=== PATIENT | male | born 1940 | race Caucasian/White ===

== ENCOUNTER → 2016-11-26 | Outpatient (CLI) | payer MEDICARE ==
[~2016-11-26] MED LIST: ASPI81TA85 PO; BUME2TAB PO; CLAR10CA3 PO; CORE20CA PO; DIOV320T6 PO; FLOMAX PO; GLYB5TA PO; LAMI200T3 PO; LIPI20TA PO; METF500T PO; PLAV75TA PO; PRIL20TA2 PO; SERT-141 PO; TEGR1TAB PO; TRAN7.5T PO; [UNRECOGNIZED DRUG - CODE] PO
--- NOTE | 2016-11-26 17:34 | REP ---
CHEST X-RAY, TWO VIEWS: HISTORY: Dyspnea on exertion. COMPARISON: Chest x-ray 12/22/2014. FINDINGS: A unipolar pacemaker is seen in the right heart via the left side. There is moderate cardiomegaly. Cardiothoracic ratio today measures 19.5 cm over 32.9 cm. Heart size is essentially unchanged. The aorta is tortuous as before. Pleural angles are sharp. There is no evidence of pulmonary edema. Pulmonary vasculature is slightly cephalized. There are old healed rib fractures on the right. No other significant bony abnormality is seen. IMPRESSION: Moderate cardiomegaly. Pulmonary vasculature cephalization. No evidence of pulmonary edema or pleural effusion. Signed by Prasanth Zambrano MD 11/26/2016 06:57 P
[2016-11-26 20:31] LABS: MEAN CORPUSCULAR HEMOGLOBIN 27.7 pg (27.0-33.0); MEAN CORPUSCULAR HGB CONC 31.7 g/dl (32.0-36.5); MEAN CORPUSCULAR VOLUME 87.5 fl (80.0-96.0); RED CELL DISTRIBUTION WIDTH 13.7 % (11.5-14.5); WHITE BLOOD COUNT 5.3 K/mm3 (4.0-10.0)
[2016-11-26 20:52] LABS: CALCIUM LEVEL 8.4 MG/DL (8.8-10.2); CREATININE FOR GFR 1.63 MG/DL (0.70-1.30); GLOMERULAR FILTRATION RATE 44.1 (>42); POTASSIUM SERUM 4.4 MEQ/L (3.5-5.1)
== END ==
LOC: M SMT 14:13
PROVIDERS: ATTEND Internal Medicine Cardiovascular Disease
DX: R06.09 Other forms of dyspnea (principal); I51.7 Cardiomegaly

== ENCOUNTER → 2016-12-01 | Outpatient (CLI) | payer MEDICARE ==
[2016-12-01 10:43] LABS: CALCIUM LEVEL 8.4 MG/DL (8.8-10.2); CREATININE FOR GFR 1.53 MG/DL (0.70-1.30); GLOMERULAR FILTRATION RATE 47.5 (>42); PERCENT SATURATION 9.2 % (19.7-37.4); POTASSIUM SERUM 3.9 MEQ/L (3.5-5.1)
== END ==
LOC: M LAB 09:07
PROVIDERS: ATTEND Internal Medicine Cardiovascular Disease
DX: I42.9 Cardiomyopathy, unspecified (principal); I25.10 Atherosclerotic heart disease of native coronary artery without angina pectoris; D64.9 Anemia, unspecified

== ENCOUNTER → 2016-12-09 | Outpatient (CLI) | payer MEDICARE ==
[~2016-12-09] MED LIST changes: -PLAV75TA PO; +PLAV75TA38 PO
[2016-12-09 18:34] LABS: CALCIUM LEVEL 8.6 MG/DL (8.8-10.2); CREATININE FOR GFR 1.44 MG/DL (0.70-1.30); GLOMERULAR FILTRATION RATE 50.9 (>42); POTASSIUM SERUM 4.2 MEQ/L (3.5-5.1)
== END ==
LOC: M SMT 11:08
PROVIDERS: ATTEND Internal Medicine Cardiovascular Disease
DX: I50.9 Heart failure, unspecified (principal)

== ENCOUNTER → 2016-12-31 | Outpatient (CLI) | payer MEDICARE ==
[2016-12-31 14:33] LABS: CALCIUM LEVEL 8.7 MG/DL (8.8-10.2); CREATININE FOR GFR 1.59 MG/DL (0.70-1.30); GLOMERULAR FILTRATION RATE 45.4 (>42); POTASSIUM SERUM 4.1 MEQ/L (3.5-5.1)
== END ==
LOC: M SMT 11:21
PROVIDERS: ATTEND Internal Medicine Cardiovascular Disease
DX: I25.5 Ischemic cardiomyopathy (principal); D64.9 Anemia, unspecified

== ENCOUNTER → 2017-01-10 | Outpatient (CLI) | payer MEDICARE ==
[2017-01-10 19:38] LABS: MEAN CORPUSCULAR HEMOGLOBIN 28.8 pg (27.0-33.0); MEAN CORPUSCULAR HGB CONC 32.9 g/dl (32.0-36.5); MEAN CORPUSCULAR VOLUME 87.4 fl (80.0-96.0); RED CELL DISTRIBUTION WIDTH 14.2 % (11.5-14.5); WHITE BLOOD COUNT 5.3 K/mm3 (4.0-10.0)
[2017-01-10 20:16] LABS: CALCIUM LEVEL 9.2 MG/DL (8.8-10.2); CREATININE FOR GFR 1.53 MG/DL (0.70-1.30); GLOMERULAR FILTRATION RATE 47.5 (>42); POTASSIUM SERUM 4.1 MEQ/L (3.5-5.1)
== END ==
LOC: M SMT 14:43
PROVIDERS: ATTEND Internal Medicine Cardiovascular Disease
DX: I25.5 Ischemic cardiomyopathy (principal); D64.9 Anemia, unspecified

== ENCOUNTER → 2017-02-20 | Outpatient (CLI) | payer MEDICARE ==
[~2017-02-20] MED LIST changes: -SERT-141 PO; +SERT50TA PO
--- NOTE | 2017-02-20 15:35 | REP ---
Clinical: CHF. Cough. Comparison: 11/26/2016. Findings: Stable cardiomegaly. Lung erwin demonstrate chronic interstitial changes. Subtle right lower lobe infiltrate. No effusion. No pneumothorax. Skeletal structures intact. Impression: Chronic cardiomegaly and interstitial changes. Acute right basilar atelectasis/infiltrate suggested. Signed by Dav Shah MD 02/20/2017 03:27 P
[2017-02-20 18:37] LABS: MEAN CORPUSCULAR HEMOGLOBIN 29.5 pg (27.0-33.0); MEAN CORPUSCULAR HGB CONC 33.1 g/dl (32.0-36.5); MEAN CORPUSCULAR VOLUME 89.1 fl (80.0-96.0); WHITE BLOOD COUNT 4.6 K/mm3 (4.0-10.0)
== END ==
LOC: M SMT 14:55
PROVIDERS: ATTEND Internal Medicine Cardiovascular Disease
DX: I50.9 Heart failure, unspecified (principal); R06.00 Dyspnea, unspecified; R05 Cough

== ENCOUNTER → 2017-03-04 | Outpatient (CLI) | payer MEDICARE ==
--- NOTE | 2017-03-04 12:28 | REP ---
PA and lateral chest: Comparisons 02/20/2017. The right basilar infiltrate identified on the comparison study is not significantly changed. Remainder the lung erwin are clear and unchanged. Cardiomegaly and pacemaker are again noted, unchanged. Sarah, mediastinum, bony thorax are unchanged. Signed by Pasha Gustafson MD 03/04/2017 12:19 P
[2017-03-04 20:25] LABS: MEAN CORPUSCULAR HGB CONC 32.3 g/dl (32.0-36.5); MEAN CORPUSCULAR VOLUME 89.8 fl (80.0-96.0); RED CELL DISTRIBUTION WIDTH 15.5 % (11.5-14.5)
[2017-03-04 20:34] LABS: ALBUMIN 3.8 GM/DL (3.2-5.2); ALBUMIN/GLOBULIN RATIO 1.46 (1.00-1.93); BILIRUBIN,TOTAL 0.3 MG/DL (0.2-1.0); CALCIUM LEVEL 8.8 MG/DL (8.8-10.2); CREATININE FOR GFR 1.27 MG/DL (0.70-1.30); GLOMERULAR FILTRATION RATE 58.9 (>42); TOTAL PROTEIN 6.4 GM/DL (6.4-8.2)
== END ==
LOC: M SMT 10:25
PROVIDERS: ATTEND Family Medicine
DX: J18.9 Pneumonia, unspecified organism (principal); R53.83 Other fatigue; I51.7 Cardiomegaly; Z95.0 Presence of cardiac pacemaker

== ENCOUNTER → 2017-03-21 | Outpatient (CLI) | payer MEDICARE ==
--- NOTE | 2017-03-21 11:49 | REP ---
REASON: Cardiomyopathy with cough and hemoptysis. COMPARISON: Multiple, latest 03/04/2017. There is cardiomegaly status quo. There is a single chamber bipolar pacemaker device status quo with AICD. The patchy right basilar opacity seen previously has improved but not yet completely resolved. There are no other significant changes in the lung erwin. There is no change in the osseous structures. IMPRESSION: Improvement with residual as described above. Signed by Nba Coleman DO 03/21/2017 11:53 A
[2017-03-21 18:30] LABS: CALCIUM LEVEL 8.6 MG/DL (8.8-10.2); CREATININE FOR GFR 1.36 MG/DL (0.70-1.30); GLOMERULAR FILTRATION RATE 54.4 (>42); POTASSIUM SERUM 3.6 MEQ/L (3.5-5.1)
== END ==
LOC: M SMT 11:25
PROVIDERS: ATTEND Internal Medicine Cardiovascular Disease
DX: I42.9 Cardiomyopathy, unspecified (principal); R04.2 Hemoptysis; I51.7 Cardiomegaly; Z95.0 Presence of cardiac pacemaker

== ENCOUNTER → 2017-09-04 | Outpatient (CLI) | payer MEDICARE ==
[~2017-09-04] MED LIST changes: +LAMI1TAB9 PO; -LAMI200T3 PO; -METF500T PO; +METF500T13 PO; +PLAV1TAB2 PO; -PLAV75TA38 PO
[2017-09-04 18:56] LABS: MEAN CORPUSCULAR HGB CONC 33.2 g/dl (32.0-36.5); MEAN CORPUSCULAR VOLUME 93.3 fl (80.0-96.0); RED CELL DISTRIBUTION WIDTH 13.1 % (11.5-14.5); WHITE BLOOD COUNT 6.3 10^3/uL (4.0-10.0)
[2017-09-04 19:19] LABS: CALCIUM LEVEL 8.7 MG/DL (8.8-10.2); CREATININE FOR GFR 1.32 MG/DL (0.70-1.30); DIGOXIN LEVEL 1.7 NG/ML (0.5-2.0); GLOMERULAR FILTRATION RATE 56.3 (>42); POTASSIUM SERUM 4.3 MEQ/L (3.5-5.1)
== END ==
LOC: M SMT 15:02
PROVIDERS: ATTEND Internal Medicine Cardiovascular Disease
DX: I11.0 Hypertensive heart disease with heart failure (principal); I50.9 Heart failure, unspecified; I25.10 Atherosclerotic heart disease of native coronary artery without angina pectoris

== ENCOUNTER → 2018-02-23 | Outpatient (CLI) | payer MEDICARE ==
[~2018-02-23] MED LIST changes: -ASPI81TA85 PO; -BUME2TAB PO; -CLAR10CA3 PO; -CORE20CA PO; -DIOV320T6 PO; +E-Z-GAS II EFFERVESCENT PACKET (SODIUM BICARB./CITRIC ACID/SIMETHICONE) As Ordered; +E-Z-HD 98% w/w 340GM SUSP BTL As Ordered; +E-Z-PAQUE 96% w/w SUSP 176GM BTL As Ordered; -FLOMAX PO; -GLYB5TA PO; -LAMI1TAB9 PO; -LIPI20TA PO; -METF500T13 PO; -PLAV1TAB2 PO; -PRIL20TA2 PO; -SERT50TA PO; -TEGR1TAB PO; -TRAN7.5T PO; -[UNRECOGNIZED DRUG - CODE] PO
== END ==
LOC: M RAD 09:01
DX: K21.9 Gastro-esophageal reflux disease without esophagitis (principal)
CPT/HCPCS: 74220

== ENCOUNTER → 2018-03-12 | Outpatient (CLI) | payer MEDICARE ==
[2018-03-12 13:40] LABS: APPEARANCE, URINE CLOUDY (CLEAR); BACTERIA, URINE AUTO NEGATIVE (NEGATIVE); BILIRUBIN, URINE AUTO NEGATIVE (NEGATIVE); BLOOD, URINE BLOOD 2+ (NEGATIVE); COLOR, URINE YELLOW (YELLOW); GLUCOSE, URINE (UA) AUTO NEGATIVE (NEGATIVE); KETONE, URINE AUTO NEGATIVE (NEGATIVE); LEUKOCYTE ESTERASE, URINE AUTO 3+ (NEGATIVE); NITRITE, URINE AUTO NEGATIVE (NEGATIVE); PROTEIN, URINE AUTO 1+ mg/dL (NEGATIVE); RBC, URINE AUTO 32 /HPF (0-3); SPECIFIC GRAVITY URINE AUTO 1.014 (1.002-1.035); SQUAMOUS EPITHELIAL CELL UR AU 0 /HPF (0-6); UROBILINOGEN, URINE AUTO 0.2 mg/dL (0.0-2.0); WBC, URINE AUTO TNTC /HPF (0-3)
[2018-03-12 14:10] LABS: PROSTATIC SPECIFIC AG MONITOR 0.74 NG/ML (< 4.0)
== END ==
LOC: M SMT 10:00
DX: R30.0 Dysuria (principal); Z85.46 Personal history of malignant neoplasm of prostate
CPT/HCPCS: 84153

== ENCOUNTER → 2018-03-19 | Outpatient (CLI) | payer MEDICARE ==
[~2018-03-19] MED LIST changes: -E-Z-GAS II EFFERVESCENT PACKET (SODIUM BICARB./CITRIC ACID/SIMETHICONE) As Ordered; -E-Z-HD 98% w/w 340GM SUSP BTL As Ordered; +VARIBAR NECTAR 40% w/v 240ML SUSP BTL As Ordered; +VARIBAR PUDDING 40% w/v 230ML TUBE As Ordered
== END ==
LOC: M RAD 11:13
DX: R13.12 Dysphagia, oropharyngeal phase (principal); G40.119 Localization-related (focal) (partial) symptomatic epilepsy and epileptic syndromes with simple partial seizures, intractable, without status epilepticus; I63.031 Cerebral infarction due to thrombosis of right carotid artery
CPT/HCPCS: 74230

== ENCOUNTER → 2018-03-19 | Outpatient (CLI) | payer MEDICARE ==
[2018-03-19 17:18] LABS: BASO % 0.4 % (0.0-1.0); EOS # 0.4 10^3/uL (0.0-0.50); EOS % 4.1 % (0.0-3.0); HEMATOCRIT 34.3 % (42.0-52.0); HEMOGLOBIN 11.3 g/dl (13.5-17.5); IMMATURE GRANULOCYTE % 0.4 % (0-3.0); LYMPH # 0.9 10^3/uL (1.5-4.5); LYMPH % 9.5 % (24.0-44.0); MEAN CORPUSCULAR HEMOGLOBIN 31.1 pg (27.0-33.0); MEAN CORPUSCULAR HGB CONC 32.9 g/dl (32.0-36.5); MEAN CORPUSCULAR VOLUME 94.5 fl (80.0-96.0); MONO # 0.7 10^3/uL (0.0-0.8); MONO % 7.5 % (0.0-5.0); NEUTROPHILS # 7.7 10^3/uL (1.8-7.7); NEUTROPHILS % 78.1 % (36.0-66.0); PLATELET COUNT, AUTOMATED 476 10^3/uL (150-450); RED BLOOD COUNT 3.63 10^6/uL (4.30-6.10); RED CELL DISTRIBUTION WIDTH 13.3 % (11.5-14.5); WHITE BLOOD COUNT 9.8 10^3/uL (4.0-10.0)
[2018-03-19 17:24] LABS: ALBUMIN 3.8 GM/DL (3.2-5.2); ALBUMIN/GLOBULIN RATIO 1.23 (1.00-1.93); ALKALINE PHOSPHATASE 70 U/L (45-117); ALT/SGPT 18 U/L (12-78); ANION GAP 7 MEQ/L (8-16); AST/SGOT 14 U/L (7-37); BILIRUBIN,TOTAL 0.2 MG/DL (0.2-1.0); BLOOD UREA NITROGEN 36 MG/DL (7-18); CALCIUM LEVEL 8.7 MG/DL (8.8-10.2); CARBON DIOXIDE LEVEL 26 MEQ/L (21-32); CHLORIDE LEVEL 111 MEQ/L (98-107); CREATININE FOR GFR 1.38 MG/DL (0.70-1.30); GLOMERULAR FILTRATION RATE 53.3 (>42); GLUCOSE, FASTING 74 MG/DL (70-100); POTASSIUM SERUM 4.8 MEQ/L (3.5-5.1); SODIUM LEVEL 144 MEQ/L (136-145); TOTAL PROTEIN 6.9 GM/DL (6.4-8.2)
[2018-03-24 00:06] LABS: LAMOTRIGINE (LAMICTAL) 5.3 ug/mL (2.0-20.0)
[2018-03-24 00:06] LABS: FREE CARBAMAZEPINE,FREE TEGRET 2.3 ug/mL (0.6-4.2)
== END ==
LOC: M SMT 14:29
DX: G40.119 Localization-related (focal) (partial) symptomatic epilepsy and epileptic syndromes with simple partial seizures, intractable, without status epilepticus (principal); I63.031 Cerebral infarction due to thrombosis of right carotid artery

== ENCOUNTER → 2018-03-26 | Outpatient (CLI) | payer MEDICARE ==
[2018-03-26 19:21] LABS: ANION GAP 11 MEQ/L (8-16); BLOOD UREA NITROGEN 61 MG/DL (7-18); CALCIUM LEVEL 7.8 MG/DL (8.8-10.2); CARBON DIOXIDE LEVEL 21 MEQ/L (21-32); CHLORIDE LEVEL 108 MEQ/L (98-107); CREATININE FOR GFR 2.21 MG/DL (0.70-1.30); GLUCOSE, FASTING 159 MG/DL (70-100); POTASSIUM SERUM 4.6 MEQ/L (3.5-5.1); SODIUM LEVEL 140 MEQ/L (136-145)
[2018-03-26 19:22] LABS: HEMATOCRIT 27.2 % (42.0-52.0); HEMOGLOBIN 8.8 g/dl (13.5-17.5); MEAN CORPUSCULAR HEMOGLOBIN 30.9 pg (27.0-33.0); MEAN CORPUSCULAR HGB CONC 32.4 g/dl (32.0-36.5); MEAN CORPUSCULAR VOLUME 95.4 fl (80.0-96.0); PLATELET COUNT, AUTOMATED 394 10^3/uL (150-450); RED BLOOD COUNT 2.85 10^6/uL (4.30-6.10); RED CELL DISTRIBUTION WIDTH 13.6 % (11.5-14.5); WHITE BLOOD COUNT 9.1 10^3/uL (4.0-10.0)
== END ==
LOC: M SMT 12:50
DX: Z85.46 Personal history of malignant neoplasm of prostate (principal)
CPT/HCPCS: 80048

== ENCOUNTER 2018-04-07 15:09 | Emergency (ER) | payer MEDICARE ==
[2018-04-07] MEDS: NS 500 ML IV ×2 (15:45)
[2018-04-07 16:19] LABS: BASO % 0.3 % (0.0-1.0); EOS # 0.5 10^3/uL (0.0-0.50); EOS % 3.8 % (0.0-3.0); HEMATOCRIT 30.8 % (42.0-52.0); HEMOGLOBIN 10.1 g/dl (13.5-17.5); IMMATURE GRANULOCYTE % 0.5 % (0-3.0); LYMPH % 7.5 % (24.0-44.0); MEAN CORPUSCULAR HEMOGLOBIN 31.3 pg (27.0-33.0); MEAN CORPUSCULAR HGB CONC 32.8 g/dl (32.0-36.5); MEAN CORPUSCULAR VOLUME 95.4 fl (80.0-96.0); MONO # 0.9 10^3/uL (0.0-0.8); MONO % 7.3 % (0.0-5.0); NEUTROPHILS # 10.2 10^3/uL (1.8-7.7); NEUTROPHILS % 80.6 % (36.0-66.0); PLATELET COUNT, AUTOMATED 517 10^3/uL (150-450); RED BLOOD COUNT 3.23 10^6/uL (4.30-6.10); RED CELL DISTRIBUTION WIDTH 13.9 % (11.5-14.5); WHITE BLOOD COUNT 12.7 10^3/uL (4.0-10.0)
[2018-04-07 16:41] LABS: ALBUMIN 3.6 GM/DL (3.2-5.2); ALBUMIN/GLOBULIN RATIO 1.06 (1.00-1.93); ALKALINE PHOSPHATASE 77 U/L (45-117); ALT/SGPT 24 U/L (12-78); AMYLASE 44 U/L (25-115); ANION GAP 10 MEQ/L (8-16); AST/SGOT 12 U/L (7-37); BILIRUBIN,DIRECT 0.1 MG/DL (0.0-0.2); BILIRUBIN,TOTAL 0.3 MG/DL (0.2-1.0); BLOOD UREA NITROGEN 29 MG/DL (7-18); CALCIUM LEVEL 8.7 MG/DL (8.8-10.2); CARBON DIOXIDE LEVEL 22 MEQ/L (21-32); CHLORIDE LEVEL 112 MEQ/L (98-107); CK-MB VALUE MASS 1.8 NG/ML (<3.6); CPK CREATINE PHOSPHOKINASE 107 U/L (39-308); CREATININE FOR GFR 1.43 MG/DL (0.70-1.30); GLOMERULAR FILTRATION RATE 51.2 (>42); GLUCOSE, FASTING 111 MG/DL (70-100); LIPASE 99 U/L (73-393); MB/CK RELATIVE INDEX 1.68 (< OR =4); POTASSIUM SERUM 4.6 MEQ/L (3.5-5.1); SODIUM LEVEL 144 MEQ/L (136-145); TROPONIN I 0.02 NG/ML (< 0.10)
[2018-04-07 16:42] LABS: LACTIC ACID SEPSIS PROTOCOL 1.1 MMOL/L (0.4-2.0)
[2018-04-07] MEDS: NS 1,000 ML IV ×2 (17:00)
[2018-04-07] MEDS ORDERED: ISOVUE-370 76% 100ML VIAL (Q9967) As Ordered ×2 (17:06)
== END 2018-04-07 19:00 | disposition home or self-care (01) ==
LOC: M ED 15:09
DX: R19.00 Intra-abdominal and pelvic swelling, mass and lump, unspecified site (principal); R31.9 Hematuria, unspecified; D64.9 Anemia, unspecified; N28.9 Disorder of kidney and ureter, unspecified; R94.31 Abnormal electrocardiogram [ECG] [EKG]; I25.2 Old myocardial infarction; E11.9 Type 2 diabetes mellitus without complications; I10 Essential (primary) hypertension; E78.70 Disorder of bile acid and cholesterol metabolism, unspecified; K21.9 Gastro-esophageal reflux disease without esophagitis; Z86.73 Personal history of transient ischemic attack (TIA), and cerebral infarction without residual deficits; Z85.46 Personal history of malignant neoplasm of prostate; Z88.8 Allergy status to other drugs, medicaments and biological substances; Z91.013 Allergy to seafood; Z91.018 Allergy to other foods; Z79.82 Long term (current) use of aspirin; Z79.899 Other long term (current) drug therapy; Z79.01 Long term (current) use of anticoagulants; Z79.84 Long term (current) use of oral hypoglycemic drugs; Z87.891 Personal history of nicotine dependence
CPT/HCPCS: Q9967

== ENCOUNTER 2018-04-11 11:06 | Day surgery (SDC) | payer MEDICARE ==
[2018-04-11 12:13] LABS: BASO % 0.3 % (0.0-1.0); EOS # 0.5 10^3/uL (0.0-0.50); EOS % 3.9 % (0.0-3.0); HEMATOCRIT 30.7 % (42.0-52.0); HEMOGLOBIN 9.9 g/dl (13.5-17.5); IMMATURE GRANULOCYTE % 0.4 % (0-3.0); LYMPH # 0.7 10^3/uL (1.5-4.5); LYMPH % 5.3 % (24.0-44.0); MEAN CORPUSCULAR HGB CONC 32.2 g/dl (32.0-36.5); MEAN CORPUSCULAR VOLUME 96.2 fl (80.0-96.0); MONO # 0.7 10^3/uL (0.0-0.8); MONO % 5.5 % (0.0-5.0); NEUTROPHILS % 84.6 % (36.0-66.0); PLATELET COUNT, AUTOMATED 493 10^3/uL (150-450); RED BLOOD COUNT 3.19 10^6/uL (4.30-6.10); RED CELL DISTRIBUTION WIDTH 14.2 % (11.5-14.5)
[2018-04-11 12:27] LABS: INR 1.29; PROTHROMBIN TIME 16.4 SECONDS (12.4-14.5)
[2018-04-11 12:28] LABS: PARTIAL THROMBOPLASTIN TIME 33.8 SECONDS (26.8-37.9)
[2018-04-11] MEDS: NS 1,000 ML IV (12:30)
[2018-04-11 12:31] LABS: ALBUMIN 3.6 GM/DL (3.2-5.2); ALKALINE PHOSPHATASE 71 U/L (45-117); ALT/SGPT 21 U/L (12-78); ANION GAP 6 MEQ/L (8-16); AST/SGOT 10 U/L (7-37); BILIRUBIN,DIRECT 0.1 MG/DL (0.0-0.2); BILIRUBIN,TOTAL 0.5 MG/DL (0.2-1.0); BLOOD UREA NITROGEN 26 MG/DL (7-18); CALCIUM LEVEL 8.3 MG/DL (8.8-10.2); CARBON DIOXIDE LEVEL 25 MEQ/L (21-32); CHLORIDE LEVEL 114 MEQ/L (98-107); CREATININE FOR GFR 1.26 MG/DL (0.70-1.30); GLOMERULAR FILTRATION RATE 59.2 (>42); GLUCOSE, FASTING 140 MG/DL (70-100); LIPASE 86 U/L (73-393); POTASSIUM SERUM 3.8 MEQ/L (3.5-5.1); SODIUM LEVEL 145 MEQ/L (136-145); TOTAL PROTEIN 7.2 GM/DL (6.4-8.2)
[2018-04-11 13:06] LABS: BLOOD URINE MANUAL RFX POSITIVE (NEGATIVE); GLUCOSE, URINE (UA) MANUAL NEGATIVE (NEGATIVE); PROTEIN, URINE MANUAL REFLEX 3+ mg/dL (NEGATIVE)
[2018-04-11 13:07] LABS: BILIRUBIN, URINE MANUAL OBSCURED (NEGATIVE); KETONE, URINE MANUAL OBSCURED mg/dL (NEGATIVE); MICROSCOPIC INDICATED? RFX YES (NO); NITRITE, URINE MANUAL RFX POSITIVE (NEGATIVE); UROBILINOGEN, URINE MANUAL OBSCURED mg/dl (NORMAL)
[2018-04-11 13:19] LABS: BACTERIA, URINE SMALL AMOUNT; HYALINE CAST, URINE NONE SEEN /lpf (0-1); MICROSCOPIC EXAM PERFORMED; RBC, URINE TNTC /hpf (0-3); RENAL EPITHELIAL CELLS, URINE SMALL AMOUNT /hpf; SQUAMOUS EPITHELIAL CELL URINE NONE SEEN /hpf (SMALL AMT)
[2018-04-11 14:07] LABS: CK-MB VALUE MASS 2.1 NG/ML (<3.6); CPK CREATINE PHOSPHOKINASE 91 U/L (39-308); TROPONIN I 0.02 NG/ML (< 0.10)
[2018-04-11] MEDS ORDERED: ISOVUE-370 76% 100ML VIAL (Q9967) As Ordered (14:36)
[2018-04-11 14:58] LABS: DIGOXIN LEVEL 0.9 NG/ML (0.5-2.0)
[2018-04-11] MEDS ORDERED: MIDAZOLAM INJ 2 MG/2 ML VIAL (J2250) As Ordered (17:14)
[2018-04-11] MEDS ORDERED: PROPOFOL 200 MG/20 ML VIAL As Ordered ×4 (17:14→17:52)
[2018-04-11] MEDS ORDERED: LIDOCAINE 2% INJ 100 MG/5 ML SDV (FOR ANES.) As Ordered (17:14)
[2018-04-11] MEDS ORDERED: fentaNYL 100 MCG/2 ML INJECTION (J3010) As Ordered (17:14)
[2018-04-11] MEDS: ceFAZolin 2 GM/D5W 50 ML IV BAG (J0690 PER 500MG) As Ordered (17:15)
[2018-04-11] MEDS: LIDOCAINE 2% 5ML JELLY UROJET As Ordered (17:17)
[2018-04-11] MEDS: cefTRIAXone SOD 1 GM VIAL (J0696) As Ordered (17:35)
[2018-04-11] MEDS ORDERED: ONDANSETRON 4MG/2ML VIAL (J2405) As Ordered (17:43)
[2018-04-11] MEDS ORDERED: dexameTHASONE 4 MG/ML 1ML VIAL (J1100) As Ordered ×2 (17:43)
[2018-04-11] MEDS ORDERED: BELLADONNA ALKALOIDS/OPIUM SUPP As Ordered (18:24)
[2018-04-11] MEDS ORDERED: METOCLOPRAMIDE INJ 10MG/2ML VIAL (J2765) IV (18:30)
[2018-04-11] MEDS: LR 1,000 ML IV (18:30)
[2018-04-11] MEDS ORDERED: ONDANSETRON 4MG/2ML VIAL (J2405) IV (18:30)
[2018-04-11] MEDS: PERCOCET 5MG/325MG TAB PO ×2 (18:35→19:02)
[2018-04-11] MEDS: fentaNYL 100 MCG/2 ML INJECTION (J3010) IV ×4 (18:35→18:54)
[2018-04-11 20:29] LABS: CHLAMYDIA DNA AMPLIFICATION NEGATIVE (NEGATIVE); GC DNA AMPLIFICATION NEGATIVE (NEGATIVE)
[2018-04-11] MEDS ORDERED: PERCOCET 5MG/325MG TAB PO (23:45)
[2018-04-12] MEDS: ACETAMINOPHEN TAB 650MG DOSE (2X325MG) PO (01:45)
[2018-04-12] MEDS: PERCOCET 5MG/325MG TAB PO ×2 (02:05→06:09)
[2018-04-12] MEDS ORDERED: ALBUTEROL SULFATE 2.5 MG/0.5 ML INH NEB SOLN NEB (08:30)
[2018-04-12] MEDS: DIGOXIN 0.125 MG TAB PO (09:00)
[2018-04-12] MEDS ORDERED: ACETAMINOPHEN 650MG ER TAB (TYLENOL ARTHRITIS) PO (09:30)
[2018-04-12 09:42] LABS: BASO % 0.3 % (0.0-1.0); EOS # 0.2 10^3/uL (0.0-0.50); EOS % 1.5 % (0.0-3.0); HEMATOCRIT 28.7 % (42.0-52.0); HEMOGLOBIN 9.1 g/dl (13.5-17.5); IMMATURE GRANULOCYTE % 0.4 % (0-3.0); LYMPH % 8.6 % (24.0-44.0); MEAN CORPUSCULAR HEMOGLOBIN 30.6 pg (27.0-33.0); MEAN CORPUSCULAR HGB CONC 31.7 g/dl (32.0-36.5); MEAN CORPUSCULAR VOLUME 96.6 fl (80.0-96.0); MONO # 0.9 10^3/uL (0.0-0.8); MONO % 7.5 % (0.0-5.0); NEUTROPHILS # 9.5 10^3/uL (1.8-7.7); NEUTROPHILS % 81.7 % (36.0-66.0); PLATELET COUNT, AUTOMATED 448 10^3/uL (150-450); RED BLOOD COUNT 2.97 10^6/uL (4.30-6.10); RED CELL DISTRIBUTION WIDTH 14.4 % (11.5-14.5); WHITE BLOOD COUNT 11.7 10^3/uL (4.0-10.0)
[2018-04-12] MEDS: fentaNYL 100 MCG/2 ML INJECTION (J3010) IV ×7 (09:53→09:56)
[2018-04-12 10:20] LABS: DIGOXIN LEVEL 0.7 NG/ML (0.5-2.0)
[2018-04-12 10:29] LABS: ALBUMIN 3.2 GM/DL (3.2-5.2); ALKALINE PHOSPHATASE 63 U/L (45-117); ALT/SGPT 18 U/L (12-78); ANION GAP 9 MEQ/L (8-16); AST/SGOT 11 U/L (7-37); BILIRUBIN,TOTAL 0.4 MG/DL (0.2-1.0); BLOOD UREA NITROGEN 21 MG/DL (7-18); C REACTIVE PROTEIN QUANTITATIV 1.09 MG/DL (0.00-0.30); CARBON DIOXIDE LEVEL 24 MEQ/L (21-32); CHLORIDE LEVEL 114 MEQ/L (98-107); CHOLESTEROL LEVEL 105 MG/DL (<200); CHOLESTEROL RISK RATIO 2.386 (<5); CPK CREATINE PHOSPHOKINASE 98 U/L (39-308); CREATININE FOR GFR 1.29 MG/DL (0.70-1.30); GLOMERULAR FILTRATION RATE 57.6 (>42); GLUCOSE, FASTING 175 MG/DL (70-100); HDL CHOLESTEROL 44 MG/DL (>40); LDL CHOLESTEROL 33.2 MG/DL (<100); NON-HDL-C 61 MG/DL; POTASSIUM SERUM 4.3 MEQ/L (3.5-5.1); SODIUM LEVEL 147 MEQ/L (136-145); TOTAL PROTEIN 6.4 GM/DL (6.4-8.2); TRIGLYCERIDES LEVEL 139 MG/DL (<150); TROPONIN I 0.04 NG/ML (< 0.10)
[2018-04-12 10:30] LABS: CK-MB VALUE MASS 2.5 NG/ML (<3.6); MB/CK RELATIVE INDEX 2.55 (< OR =4)
[2018-04-12 10:35] LABS: THYROID STIMULATING HORMONE 0.732 uIU/ML (0.358-3.740)
[2018-04-12] MEDS: lamoTRIgine 100MG TAB PO (10:49)
[2018-04-12] MEDS: TORSEMIDE 20 MG TAB PO (10:50)
[2018-04-12] MEDS: CLORAZEPATE 3.75 MG TAB PO (10:50)
[2018-04-12] MEDS: carBAMazepine XR 200 MG TAB PO (10:51)
[2018-04-12] MEDS: PANTOPRAZOLE 40MG TAB (PROTONIX) PO (10:51)
[2018-04-12] MEDS: ALBUTEROL SULFATE 2.5 MG/0.5 ML INH NEB SOLN NEB (11:43)
[2018-04-12] MEDS ORDERED: ATORVASTATIN 20 MG TAB PO (21:00)
[2018-04-12] MEDS ORDERED: SERTRALINE HCL 50 MG TAB PO (21:00)
== END 2018-04-12 13:40 | disposition home or self-care (01) ==
LOC: M SDC 04-12 13:40 → M ED 11:06 → M SDC 15:45 → M MS5PR 19:30
DX: R31.0 Gross hematuria (principal); N30.41 Irradiation cystitis with hematuria; N34.1 Nonspecific urethritis; N32.9 Bladder disorder, unspecified; Z85.46 Personal history of malignant neoplasm of prostate; Z92.3 Personal history of irradiation; Z91.013 Allergy to seafood; Z88.8 Allergy status to other drugs, medicaments and biological substances; I11.9 Hypertensive heart disease without heart failure; I50.9 Heart failure, unspecified; I25.2 Old myocardial infarction; Z98.61 Coronary angioplasty status; Z86.73 Personal history of transient ischemic attack (TIA), and cerebral infarction without residual deficits; J45.909 Unspecified asthma, uncomplicated; Z79.01 Long term (current) use of anticoagulants; Z95.810 Presence of automatic (implantable) cardiac defibrillator; Z87.891 Personal history of nicotine dependence; I25.10 Atherosclerotic heart disease of native coronary artery without angina pectoris; N18.3 Chronic kidney disease, stage 3 (moderate)
CPT/HCPCS: 52224

== ENCOUNTER 2018-04-17 14:52 | Emergency (ER) | payer MEDICARE ==
[2018-04-17] MEDS: PERCOCET 5MG/325MG TAB PO (17:10)
[2018-04-17 17:22] LABS: BASO % 0.2 % (0.0-1.0); EOS # 0.3 10^3/uL (0.0-0.50); EOS % 2.4 % (0.0-3.0); HEMATOCRIT 28.8 % (42.0-52.0); HEMOGLOBIN 9.1 g/dl (13.5-17.5); IMMATURE GRANULOCYTE % 0.4 % (0-3.0); LYMPH # 0.9 10^3/uL (1.5-4.5); LYMPH % 7.5 % (24.0-44.0); MEAN CORPUSCULAR HEMOGLOBIN 30.3 pg (27.0-33.0); MEAN CORPUSCULAR HGB CONC 31.6 g/dl (32.0-36.5); MONO # 0.7 10^3/uL (0.0-0.8); MONO % 5.4 % (0.0-5.0); NEUTROPHILS # 10.4 10^3/uL (1.8-7.7); NEUTROPHILS % 84.1 % (36.0-66.0); PLATELET COUNT, AUTOMATED 440 10^3/uL (150-450); RED CELL DISTRIBUTION WIDTH 14.4 % (11.5-14.5); WHITE BLOOD COUNT 12.4 10^3/uL (4.0-10.0)
[2018-04-17 17:45] LABS: APPEARANCE, URINE CLOUDY (CLEAR); BACTERIA, URINE AUTO NEGATIVE (NEGATIVE); BILIRUBIN, URINE AUTO NEGATIVE (NEGATIVE); BLOOD, URINE BLOOD 3+ (NEGATIVE); COLOR, URINE RED (YELLOW); GLUCOSE, URINE (UA) AUTO NEGATIVE (NEGATIVE); KETONE, URINE AUTO NEGATIVE (NEGATIVE); LEUKOCYTE ESTERASE, URINE AUTO 2+ (NEGATIVE); MUCUS, URINE SMALL (NEGATIVE); NITRITE, URINE AUTO NEGATIVE (NEGATIVE); PROTEIN, URINE AUTO 2+ mg/dL (NEGATIVE); RBC, URINE AUTO TNTC /HPF (0-3); SPECIFIC GRAVITY URINE AUTO 1.009 (1.002-1.035); SQUAMOUS EPITHELIAL CELL UR AU 0 /HPF (0-6); UROBILINOGEN, URINE AUTO 0.2 mg/dL (0.0-2.0); WBC, URINE AUTO TNTC /HPF (0-3)
[2018-04-17 17:46] LABS: ANION GAP 11 MEQ/L (8-16); BLOOD UREA NITROGEN 46 MG/DL (7-18); CALCIUM LEVEL 8.7 MG/DL (8.8-10.2); CARBON DIOXIDE LEVEL 22 MEQ/L (21-32); CHLORIDE LEVEL 112 MEQ/L (98-107); CREATININE FOR GFR 1.49 MG/DL (0.70-1.30); GLOMERULAR FILTRATION RATE 48.8 (>42); GLUCOSE, FASTING 145 MG/DL (70-100); POTASSIUM SERUM 4.3 MEQ/L (3.5-5.1); SODIUM LEVEL 145 MEQ/L (136-145)
[2018-04-17] MEDS ORDERED: LIDOCAINE 2% 5ML JELLY UROJET As Ordered (18:26)
[2018-04-17] MEDS: LIDOCAINE 2% 5ML JELLY UROJET TOP ×2 (18:31→18:36)
== END 2018-04-17 20:50 | disposition home or self-care (01) ==
LOC: M ED 14:52
DX: R31.9 Hematuria, unspecified (principal); R33.9 Retention of urine, unspecified; Z98.890 Other specified postprocedural states; D49.4 Neoplasm of unspecified behavior of bladder; I11.0 Hypertensive heart disease with heart failure; I25.10 Atherosclerotic heart disease of native coronary artery without angina pectoris; I50.9 Heart failure, unspecified; I25.2 Old myocardial infarction; J45.909 Unspecified asthma, uncomplicated; K44.9 Diaphragmatic hernia without obstruction or gangrene; R56.9 Unspecified convulsions; Z95.0 Presence of cardiac pacemaker; Z79.899 Other long term (current) drug therapy; Z79.01 Long term (current) use of anticoagulants; Z79.82 Long term (current) use of aspirin; Z79.84 Long term (current) use of oral hypoglycemic drugs; Z88.8 Allergy status to other drugs, medicaments and biological substances; Z91.018 Allergy to other foods; Z91.013 Allergy to seafood
CPT/HCPCS: 80048

== ENCOUNTER → 2018-04-22 | Outpatient (REF) | payer MEDICARE ==
[2018-04-23 12:42] LABS: BACTERIA, URINE AUTO NEGATIVE (NEGATIVE); MUCUS, URINE SMALL (NEGATIVE); RBC, URINE AUTO TNTC /HPF (0-3); SQUAMOUS EPITHELIAL CELL UR AU 0 /HPF (0-6); WBC, URINE AUTO TNTC /HPF (0-3)
== END ==
LOC: M SMT 10:54
DX: Z08 Encounter for follow-up examination after completed treatment for malignant neoplasm (principal); Z85.46 Personal history of malignant neoplasm of prostate; Z79.899 Other long term (current) drug therapy
CPT/HCPCS: 81015

== ENCOUNTER 2018-04-25 15:20 | Inpatient (IN) | payer MEDICARE ==
[2018-04-25] MEDS: NS 1,000 ML IV ×2 (16:45)
[2018-04-25 16:46] LABS: BASO # 0.1 10^3/uL (0.0-0.2); BASO % 0.4 % (0.0-1.0); EOS # 0.4 10^3/uL (0.0-0.50); EOS % 2.6 % (0.0-3.0); HEMATOCRIT 30.7 % (42.0-52.0); HEMOGLOBIN 9.8 g/dl (13.5-17.5); IMMATURE GRANULOCYTE % 0.6 % (0-3.0); LYMPH # 0.8 10^3/uL (1.5-4.5); LYMPH % 5.9 % (24.0-44.0); MEAN CORPUSCULAR HEMOGLOBIN 30.6 pg (27.0-33.0); MEAN CORPUSCULAR HGB CONC 31.9 g/dl (32.0-36.5); MEAN CORPUSCULAR VOLUME 95.9 fl (80.0-96.0); NEUTROPHILS # 11.7 10^3/uL (1.8-7.7); NEUTROPHILS % 83.5 % (36.0-66.0); PLATELET COUNT, AUTOMATED 531 10^3/uL (150-450)
[2018-04-25] MEDS ORDERED: LIDOCAINE 2% 5ML JELLY UROJET As Ordered (16:59)
[2018-04-25 17:00] LABS: ALBUMIN 3.1 GM/DL (3.2-5.2); ALBUMIN/GLOBULIN RATIO 1.07 (1.00-1.93); ALKALINE PHOSPHATASE 100 U/L (45-117); ALT/SGPT 54 U/L (12-78); ANION GAP 10 MEQ/L (8-16); AST/SGOT 44 U/L (7-37); BILIRUBIN,DIRECT 0.2 MG/DL (0.0-0.2); BILIRUBIN,TOTAL 0.4 MG/DL (0.2-1.0); BLOOD UREA NITROGEN 54 MG/DL (7-18); CALCIUM LEVEL 7.8 MG/DL (8.8-10.2); CARBON DIOXIDE LEVEL 21 MEQ/L (21-32); CHLORIDE LEVEL 102 MEQ/L (98-107); CPK CREATINE PHOSPHOKINASE 130 U/L (39-308); CREATININE FOR GFR 1.67 MG/DL (0.70-1.30); GLOMERULAR FILTRATION RATE 42.8 (>42); GLUCOSE, FASTING 163 MG/DL (70-100); POTASSIUM SERUM 4.6 MEQ/L (3.5-5.1); SODIUM LEVEL 133 MEQ/L (136-145); TROPONIN I 0.02 NG/ML (< 0.10)
[2018-04-25 17:06] LABS: CK-MB VALUE MASS 3.2 NG/ML (<3.6); MB/CK RELATIVE INDEX 2.46 (< OR =4)
[2018-04-25 17:07] LABS: LACTIC ACID SEPSIS PROTOCOL 1.8 MMOL/L (0.4-2.0)
[2018-04-25] MEDS: CIPROFLOXACIN 400 MG in APPROPRIATE DILUENT 1 EA IV (17:19)
[2018-04-25 17:30] LABS: AMORPHOUS SEDIMENT RFX SMALL (NEGATIVE); KETONE, URINE AUTO RFX NEGATIVE (NEGATIVE); MUCUS, URINE RFX SMALL (NEGATIVE); RBC, URINE AUTO RFX 45 /HPF (0-3); SPECIFIC GRAVITY UR AUTO RFX 1.014 (1.002-1.035); SQUAM EPITHELIAL CELL UR AURFX 0 /HPF (0-6)
[2018-04-25 17:45] LABS: LEUKOCYTE ESTERASE UR AUTO RFX 3+ (NEGATIVE); NITRITE, URINE AUTO RFX POSITIVE (NEGATIVE); WBC, URINE AUTO RFX TNTC /HPF (0-3)
[2018-04-25 17:46] LABS: BEDSIDE GLUCOSE 157 MG/DL (83-110)
[2018-04-25] MEDS ORDERED: GLUCOSE 4 GM CHEW TABLET PO (18:15)
[2018-04-25] MEDS ORDERED: DEXTROSE 50% 50 ML SYRINGE IV (18:15)
[2018-04-25] MEDS ORDERED: GLUCAGON FOR INJ 1 MG VIAL (J1610) SC (18:15)
[2018-04-25 18:30] LABS: RETIC HEMOGLOBIN EQUIVALENT 33.7 pg (24-36); RETICULOCYTE # 125.6 10^9/L (17-77)
[2018-04-25 18:48] LABS: DIGOXIN LEVEL 1.8 NG/ML (0.5-2.0); IRON (FE) 34 UG/DL (65-175); PERCENT SATURATION 16.5 % (19.7-50.0); TOTAL IRON BINDING CAPACITY 206 UG/DL (250-450)
[2018-04-25 18:53] LABS: ESTIMATED AVERAGE GLUCOSE 117 MG/DL (60-110); HEMOGLOBIN A1c 5.7 %
[2018-04-25] MEDS: cefTRIAXone SOD 1 GM in D5W MINI-BAG PLUS 50 ML IV (19:45)
[2018-04-25 20:39] LABS: BEDSIDE GLUCOSE 134 MG/DL (83-110)
[2018-04-25] MEDS: HumaLOG INSULIN (NovoLOG) PER UNIT SC (20:43)
[2018-04-25] MEDS ORDERED: CARVedilol 12.5 MG TAB PO (21:00)
[2018-04-25] MEDS ORDERED: metFORMIN (GLUCOPHAGE) 500 MG TAB PO (21:00)
[2018-04-25] MEDS: carBAMazepine XR 200 MG TAB PO (21:43)
[2018-04-25] MEDS: TAMSULOSIN 0.4 MG CAP PO (21:43)
[2018-04-25] MEDS: SERTRALINE HCL 50 MG TAB PO (21:44)
[2018-04-25] MEDS: lamoTRIgine 100MG TAB PO (21:44)
[2018-04-25] MEDS: ENTRESTO 97-103MG TABLET (SACUBITRIL/VALSARTAN) PO (21:44)
[2018-04-25] MEDS: ATORVASTATIN 20 MG TAB PO (21:44)
[2018-04-25] MEDS: CLORAZEPATE 3.75 MG TAB PO (22:28)
[2018-04-25] MEDS: ACETAMINOPHEN TAB 650MG DOSE (2X325MG) PO (22:34)
[2018-04-26] MEDS: ONDANSETRON 4MG/2ML VIAL (J2405) IV (02:10)
[2018-04-26] MEDS: ALBUTEROL 90 MCG/ACT 8GM HFA INHALER INH (02:47)
[2018-04-26] MEDS ORDERED: FUROSEMIDE 40 MG/4 ML VIAL (J1940) As Ordered (03:41)
[2018-04-26 03:59] LABS: ABG BASE EXCESS -7.2 (-2.0-2.0); ABG HCO3 17.7 MEQ/L (22.0-26.0); ABG O2 SATURATION 86.9 % (95.0-99.0); ABG PARTIAL PRESSURE CO2 33.5 mmHg (35.0-45.0); ABG PARTIAL PRESSURE O2 58.1 mmHg (75.0-100.0); ABG STANDARD HCO3 18.4 MEQ/L (22.0-26.0); ABG TOTAL CO2 18.7 MEQ/L (23.0-31.0); ABG pH (ARTERIAL) 7.341 UNITS (7.350-7.450)
[2018-04-26] MEDS: FUROSEMIDE 40 MG/4 ML VIAL (J1940) IV ×2 (03:59→17:45)
[2018-04-26 06:29] LABS: BASO % 0.2 % (0.0-1.0); EOS # 0.3 10^3/uL (0.0-0.50); EOS % 1.6 % (0.0-3.0); HEMATOCRIT 28.7 % (42.0-52.0); HEMOGLOBIN 9.2 g/dl (13.5-17.5); IMMATURE GRANULOCYTE % 0.7 % (0-3.0); LYMPH # 0.4 10^3/uL (1.5-4.5); LYMPH % 2.6 % (24.0-44.0); MEAN CORPUSCULAR HEMOGLOBIN 30.6 pg (27.0-33.0); MEAN CORPUSCULAR HGB CONC 32.1 g/dl (32.0-36.5); MEAN CORPUSCULAR VOLUME 95.3 fl (80.0-96.0); MONO # 1.1 10^3/uL (0.0-0.8); MONO % 6.5 % (0.0-5.0); NEUTROPHILS # 14.5 10^3/uL (1.8-7.7); NEUTROPHILS % 88.4 % (36.0-66.0); PLATELET COUNT, AUTOMATED 490 10^3/uL (150-450); RED BLOOD COUNT 3.01 10^6/uL (4.30-6.10); WHITE BLOOD COUNT 16.5 10^3/uL (4.0-10.0)
[2018-04-26 06:46] LABS: ANION GAP 10 MEQ/L (8-16); BLOOD UREA NITROGEN 46 MG/DL (7-18); CALCIUM LEVEL 7.8 MG/DL (8.8-10.2); CARBON DIOXIDE LEVEL 22 MEQ/L (21-32); CHLORIDE LEVEL 105 MEQ/L (98-107); CREATININE FOR GFR 1.36 MG/DL (0.70-1.30); GLOMERULAR FILTRATION RATE 54.2 (>42); GLUCOSE, FASTING 152 MG/DL (70-100); POTASSIUM SERUM 3.9 MEQ/L (3.5-5.1); SODIUM LEVEL 137 MEQ/L (136-145)
[2018-04-26] MEDS ORDERED: MEROPENEM INJ 1 GM in APPROPRIATE DILUENT 1 EA IV (07:00)
[2018-04-26 07:04] LABS: LACTIC ACID SEPSIS PROTOCOL 1.3 MMOL/L (0.4-2.0)
[2018-04-26 07:05] LABS: CK-MB VALUE MASS 4.6 NG/ML (<3.6); CPK CREATINE PHOSPHOKINASE 145 U/L (39-308); MB/CK RELATIVE INDEX 3.17 (< OR =4); TROPONIN I < 0.02 NG/ML (< 0.10)
[2018-04-26] MEDS: MEROPENEM INJ 1 GM in APPROPRIATE DILUENT 1 EA IV ×3 (07:26→22:31)
[2018-04-26] MEDS: HumaLOG INSULIN (NovoLOG) PER UNIT SC ×4 (07:30→20:25)
[2018-04-26] MEDS: LACTOBACILLUS ACIDOPHILUS CAP (BACID) PO ×2 (07:31→17:45)
[2018-04-26 07:48] LABS: AMMONIA 15 uMOL/L (<32)
[2018-04-26] MEDS: VANCOMYCIN HCL 1,000 MG, VIAL MATE ADAPTER 1 EACH in D5W 250 ML IV (08:04)
[2018-04-26] MEDS: carBAMazepine XR 200 MG TAB PO ×4 (09:00→20:23)
[2018-04-26] MEDS: CLORAZEPATE 3.75 MG TAB PO ×2 (09:00→20:24)
[2018-04-26] MEDS: ENTRESTO 97-103MG TABLET (SACUBITRIL/VALSARTAN) PO ×2 (09:00→20:22)
[2018-04-26] MEDS: DIGOXIN 0.125 MG TAB PO (09:00)
[2018-04-26] MEDS: lamoTRIgine 100MG TAB PO ×4 (09:00→20:24)
[2018-04-26] MEDS: CLOPIDOGREL 75 MG TAB PO (09:00)
[2018-04-26] MEDS: PANTOPRAZOLE 40MG TAB (PROTONIX) PO (09:00)
[2018-04-26] MEDS: VANCOMYCIN HCL 500 MG in D5W MINI-BAG PLUS 100 ML IV (09:39)
[2018-04-26 11:42] LABS: BEDSIDE GLUCOSE 130 MG/DL (83-110)
[2018-04-26] MEDS: PERCOCET 5MG/325MG TAB PO (15:43)
[2018-04-26 17:07] LABS: BEDSIDE GLUCOSE 113 MG/DL (83-110)
[2018-04-26 19:19] LABS: ANION GAP 8 MEQ/L (8-16); BLOOD UREA NITROGEN 38 MG/DL (7-18); CARBON DIOXIDE LEVEL 25 MEQ/L (21-32); CHLORIDE LEVEL 106 MEQ/L (98-107); CREATININE FOR GFR 1.41 MG/DL (0.70-1.30); GLUCOSE, FASTING 107 MG/DL (70-100); MAGNESIUM LEVEL 2.3 MG/DL (1.8-2.4); POTASSIUM SERUM 4.3 MEQ/L (3.5-5.1); SODIUM LEVEL 139 MEQ/L (136-145)
[2018-04-26 20:16] LABS: BEDSIDE GLUCOSE 153 MG/DL (83-110)
[2018-04-26] MEDS: TAMSULOSIN 0.4 MG CAP PO (20:23)
[2018-04-26] MEDS: ATORVASTATIN 20 MG TAB PO (20:23)
[2018-04-26] MEDS: SERTRALINE HCL 50 MG TAB PO (20:24)
[2018-04-27 05:55] LABS: BASO % 0.2 % (0.0-1.0); EOS # 0.4 10^3/uL (0.0-0.50); EOS % 3.1 % (0.0-3.0); HEMATOCRIT 26.9 % (42.0-52.0); HEMOGLOBIN 8.9 g/dl (13.5-17.5); IMMATURE GRANULOCYTE % 0.5 % (0-3.0); LYMPH % 8.6 % (24.0-44.0); MEAN CORPUSCULAR HGB CONC 33.1 g/dl (32.0-36.5); MEAN CORPUSCULAR VOLUME 93.7 fl (80.0-96.0); MONO # 1.1 10^3/uL (0.0-0.8); MONO % 9.4 % (0.0-5.0); NEUTROPHILS # 9.4 10^3/uL (1.8-7.7); NEUTROPHILS % 78.2 % (36.0-66.0); PLATELET COUNT, AUTOMATED 556 10^3/uL (150-450); RED BLOOD COUNT 2.87 10^6/uL (4.30-6.10); RED CELL DISTRIBUTION WIDTH 14.3 % (11.5-14.5)
[2018-04-27] MEDS: MEROPENEM INJ 1 GM in APPROPRIATE DILUENT 1 EA IV ×3 (06:04→22:12)
[2018-04-27 06:23] LABS: ANION GAP 8 MEQ/L (8-16); BLOOD UREA NITROGEN 37 MG/DL (7-18); CALCIUM LEVEL 7.5 MG/DL (8.8-10.2); CARBON DIOXIDE LEVEL 24 MEQ/L (21-32); CHLORIDE LEVEL 111 MEQ/L (98-107); CREATININE FOR GFR 1.33 MG/DL (0.70-1.30); GLOMERULAR FILTRATION RATE 55.7 (>42); GLUCOSE, FASTING 74 MG/DL (70-100); POTASSIUM SERUM 3.7 MEQ/L (3.5-5.1); SODIUM LEVEL 143 MEQ/L (136-145)
[2018-04-27] MEDS: HumaLOG INSULIN (NovoLOG) PER UNIT SC ×4 (07:30→21:00)
[2018-04-27] MEDS: LACTOBACILLUS ACIDOPHILUS CAP (BACID) PO ×2 (09:08→17:49)
[2018-04-27] MEDS: carBAMazepine XR 200 MG TAB PO ×2 (09:08→22:11)
[2018-04-27] MEDS: CLOPIDOGREL 75 MG TAB PO (09:08)
[2018-04-27] MEDS: PANTOPRAZOLE 40MG TAB (PROTONIX) PO (09:09)
[2018-04-27] MEDS: DIGOXIN 0.125 MG TAB PO (09:09)
[2018-04-27] MEDS: ENTRESTO 97-103MG TABLET (SACUBITRIL/VALSARTAN) PO ×2 (09:09→22:10)
[2018-04-27] MEDS: lamoTRIgine 100MG TAB PO ×2 (09:10→22:11)
[2018-04-27] MEDS: VANCOMYCIN HCL 1,000 MG, VIAL MATE ADAPTER 1 EACH in D5W 250 ML IV (09:10)
[2018-04-27] MEDS: CLORAZEPATE 3.75 MG TAB PO ×2 (10:53→22:11)
[2018-04-27 11:45] LABS: BEDSIDE GLUCOSE 122 MG/DL (83-110)
[2018-04-27] MEDS: FUROSEMIDE 40 MG/4 ML VIAL (J1940) IV (12:13)
[2018-04-27] MEDS: ACETAMINOPHEN TAB 650MG DOSE (2X325MG) PO ×2 (12:13→19:09)
[2018-04-27 12:24] LABS: BEDSIDE GLUCOSE 158 MG/DL (83-110)
[2018-04-27 17:16] LABS: BEDSIDE GLUCOSE 111 MG/DL (83-110)
[2018-04-27 17:52] LABS: VITAMIN B12 LEVEL 738 PG/ML (247-911)
[2018-04-27 20:20] LABS: BEDSIDE GLUCOSE 177 MG/DL (83-110)
[2018-04-27] MEDS: TAMSULOSIN 0.4 MG CAP PO (22:10)
[2018-04-27] MEDS: ATORVASTATIN 20 MG TAB PO (22:10)
[2018-04-27] MEDS: SERTRALINE HCL 50 MG TAB PO (22:10)
[2018-04-27] MEDS: HEPARIN SOD (PORCINE) 5000 UNITS/ML VIAL SQ (22:12)
[2018-04-28 00:37] LABS: HEMATOCRIT 28.9 % (42.0-52.0); HEMOGLOBIN 9.4 g/dl (13.5-17.5)
[2018-04-28] MEDS: MEROPENEM INJ 1 GM in APPROPRIATE DILUENT 1 EA IV ×3 (06:11→22:32)
[2018-04-28 07:04] LABS: BASO # 0.1 10^3/uL (0.0-0.2); BASO % 0.4 % (0.0-1.0); EOS # 0.4 10^3/uL (0.0-0.50); EOS % 2.5 % (0.0-3.0); HEMATOCRIT 30.3 % (42.0-52.0); HEMOGLOBIN 9.6 g/dl (13.5-17.5); IMMATURE GRANULOCYTE % 0.5 % (0-3.0); LYMPH # 1.2 10^3/uL (1.5-4.5); LYMPH % 7.8 % (24.0-44.0); MEAN CORPUSCULAR HEMOGLOBIN 30.5 pg (27.0-33.0); MEAN CORPUSCULAR HGB CONC 31.7 g/dl (32.0-36.5); MEAN CORPUSCULAR VOLUME 96.2 fl (80.0-96.0); MONO # 1.3 10^3/uL (0.0-0.8); MONO % 8.4 % (0.0-5.0); NEUTROPHILS # 12.1 10^3/uL (1.8-7.7); NEUTROPHILS % 80.4 % (36.0-66.0); PLATELET COUNT, AUTOMATED 568 10^3/uL (150-450); RED BLOOD COUNT 3.15 10^6/uL (4.30-6.10); WHITE BLOOD COUNT 15.1 10^3/uL (4.0-10.0)
[2018-04-28 07:18] LABS: ANION GAP 7 MEQ/L (8-16); BLOOD UREA NITROGEN 25 MG/DL (7-18); CALCIUM LEVEL 7.8 MG/DL (8.8-10.2); CARBON DIOXIDE LEVEL 27 MEQ/L (21-32); CHLORIDE LEVEL 112 MEQ/L (98-107); CREATININE FOR GFR 1.17 MG/DL (0.70-1.30); GLOMERULAR FILTRATION RATE > 60.0 (>42); GLUCOSE, FASTING 95 MG/DL (70-100); POTASSIUM SERUM 3.5 MEQ/L (3.5-5.1); SODIUM LEVEL 146 MEQ/L (136-145)
[2018-04-28] MEDS: carBAMazepine XR 200 MG TAB PO ×2 (09:51→20:38)
[2018-04-28] MEDS: VANCOMYCIN HCL 1,000 MG, VIAL MATE ADAPTER 1 EACH in D5W 250 ML IV (09:51)
[2018-04-28] MEDS: PANTOPRAZOLE 40MG TAB (PROTONIX) PO (09:51)
[2018-04-28] MEDS: CLOPIDOGREL 75 MG TAB PO (09:52)
[2018-04-28] MEDS: LACTOBACILLUS ACIDOPHILUS CAP (BACID) PO ×2 (09:52→18:17)
[2018-04-28] MEDS: DIGOXIN 0.125 MG TAB PO (09:52)
[2018-04-28] MEDS: ENTRESTO 97-103MG TABLET (SACUBITRIL/VALSARTAN) PO ×2 (09:52→20:38)
[2018-04-28] MEDS: TORSEMIDE 20 MG TAB PO (09:53)
[2018-04-28] MEDS: lamoTRIgine 100MG TAB PO ×2 (09:53→20:38)
[2018-04-28] MEDS: CLORAZEPATE 3.75 MG TAB PO ×2 (09:53→20:38)
[2018-04-28] MEDS: POTASSIUM CHLORIDE 10 MEQ SR TABLET PO (09:54)
[2018-04-28] MEDS: HumaLOG INSULIN (NovoLOG) PER UNIT SC ×4 (09:54→20:39)
[2018-04-28] MEDS: ACETAMINOPHEN TAB 650MG DOSE (2X325MG) PO ×2 (10:19→21:48)
[2018-04-28 11:53] LABS: BEDSIDE GLUCOSE 179 MG/DL (83-110)
[2018-04-28 17:02] LABS: C REACTIVE PROTEIN QUANTITATIV 0.77 MG/DL (0.00-0.30)
[2018-04-28 17:25] LABS: NT-PRO BNP 30280 PG/ML (<450)
[2018-04-28 18:09] LABS: BEDSIDE GLUCOSE 80 MG/DL (83-110)
[2018-04-28] MEDS: FUROSEMIDE 40 MG/4 ML VIAL (J1940) IV ×2 (18:19→19:41)
[2018-04-28 20:38] LABS: BEDSIDE GLUCOSE 179 MG/DL (83-110)
[2018-04-28] MEDS: ATORVASTATIN 20 MG TAB PO (20:38)
[2018-04-28] MEDS: TAMSULOSIN 0.4 MG CAP PO (20:38)
[2018-04-28] MEDS: SERTRALINE HCL 50 MG TAB PO (20:39)
[2018-04-28] MEDS: LIDOCAINE 2% JELLY 30 ML TOP (22:32)
[2018-04-28] MEDS: PERCOCET 5MG/325MG TAB PO (22:50)
[2018-04-29 05:20] LABS: BASO % 0.3 % (0.0-1.0); EOS # 0.3 10^3/uL (0.0-0.50); EOS % 2.6 % (0.0-3.0); HEMATOCRIT 26.8 % (42.0-52.0); HEMOGLOBIN 8.8 g/dl (13.5-17.5); IMMATURE GRANULOCYTE % 0.3 % (0-3.0); LYMPH # 0.9 10^3/uL (1.5-4.5); LYMPH % 8.8 % (24.0-44.0); MEAN CORPUSCULAR HEMOGLOBIN 31.1 pg (27.0-33.0); MEAN CORPUSCULAR HGB CONC 32.8 g/dl (32.0-36.5); MEAN CORPUSCULAR VOLUME 94.7 fl (80.0-96.0); MONO # 0.9 10^3/uL (0.0-0.8); MONO % 8.6 % (0.0-5.0); NEUTROPHILS # 8.2 10^3/uL (1.8-7.7); NEUTROPHILS % 79.4 % (36.0-66.0); RED BLOOD COUNT 2.83 10^6/uL (4.30-6.10); RED CELL DISTRIBUTION WIDTH 14.6 % (11.5-14.5); WHITE BLOOD COUNT 10.3 10^3/uL (4.0-10.0)
[2018-04-29 05:31] LABS: PLATELET COUNT, AUTOMATED 452 10^3/uL (150-450)
[2018-04-29 05:36] LABS: ANION GAP 9 MEQ/L (8-16); BLOOD UREA NITROGEN 20 MG/DL (7-18); CALCIUM LEVEL 7.7 MG/DL (8.8-10.2); CARBON DIOXIDE LEVEL 26 MEQ/L (21-32); CHLORIDE LEVEL 112 MEQ/L (98-107); CREATININE FOR GFR 1.08 MG/DL (0.70-1.30); GLOMERULAR FILTRATION RATE > 60.0 (>42); GLUCOSE, FASTING 98 MG/DL (70-100); MAGNESIUM LEVEL 1.8 MG/DL (1.8-2.4); POTASSIUM SERUM 3.3 MEQ/L (3.5-5.1); SODIUM LEVEL 147 MEQ/L (136-145)
[2018-04-29] MEDS: HumaLOG INSULIN (NovoLOG) PER UNIT SC ×4 (05:38→21:00)
[2018-04-29 05:52] LABS: ERYTHROCYTE SEDIMENTATION RATE 13 mm/hr (0-20)
[2018-04-29] MEDS: FUROSEMIDE 40 MG/4 ML VIAL (J1940) IV ×4 (06:00→18:33)
[2018-04-29] MEDS: MEROPENEM INJ 1 GM in APPROPRIATE DILUENT 1 EA IV ×2 (06:00→15:52)
[2018-04-29] MEDS: MAG SULF 1GM/100ML (MAG RUN) 1 GM in APPROPRIATE DILUENT 1 EA IV (09:00)
[2018-04-29] MEDS: CLOPIDOGREL 75 MG TAB PO (09:00)
[2018-04-29] MEDS: POTASSIUM CHLORIDE 10 MEQ SR TABLET PO ×2 (09:00→21:45)
[2018-04-29] MEDS: lamoTRIgine 100MG TAB PO ×2 (09:01→21:44)
[2018-04-29] MEDS: carBAMazepine XR 200 MG TAB PO ×2 (09:01→21:46)
[2018-04-29] MEDS: LACTOBACILLUS ACIDOPHILUS CAP (BACID) PO ×2 (09:01→18:31)
[2018-04-29] MEDS: PANTOPRAZOLE 40MG TAB (PROTONIX) PO (09:01)
[2018-04-29] MEDS: CLORAZEPATE 3.75 MG TAB PO ×2 (09:01→21:46)
[2018-04-29] MEDS: ENTRESTO 97-103MG TABLET (SACUBITRIL/VALSARTAN) PO ×2 (09:01→21:44)
[2018-04-29 12:07] LABS: BEDSIDE GLUCOSE 179 MG/DL (83-110)
[2018-04-29] MEDS: NORCO, ANEXSIA 5/325MG TABLET (HYDROcodone/ACETAMINOPHEN) PO ×2 (13:46→20:11)
[2018-04-29] MEDS: ALBUTEROL 90 MCG/ACT 8GM HFA INHALER INH (21:14)
[2018-04-29] MEDS: ATORVASTATIN 20 MG TAB PO (21:44)
[2018-04-29] MEDS: TAMSULOSIN 0.4 MG CAP PO (21:44)
[2018-04-29] MEDS: SERTRALINE HCL 50 MG TAB PO (21:46)
[2018-04-29 21:55] LABS: BEDSIDE GLUCOSE 128 MG/DL (83-110)
[2018-04-29] MEDS: LIDOCAINE 2% JELLY 30 ML TOP (22:33)
[2018-04-29] MEDS: ACETAMINOPHEN TAB 650MG DOSE (2X325MG) PO (23:13)
[2018-04-30 00:07] LABS: LAMOTRIGINE (LAMICTAL) 8.8 ug/mL (2.0-20.0)
[2018-04-30] MEDS: MEROPENEM INJ 1 GM in APPROPRIATE DILUENT 1 EA IV ×3 (00:48→15:25)
[2018-04-30] MEDS: NORCO, ANEXSIA 5/325MG TABLET (HYDROcodone/ACETAMINOPHEN) PO ×2 (01:40→05:54)
[2018-04-30 05:43] LABS: BASO % 0.2 % (0.0-1.0); EOS # 0.3 10^3/uL (0.0-0.50); EOS % 1.9 % (0.0-3.0); HEMATOCRIT 28.3 % (42.0-52.0); IMMATURE GRANULOCYTE % 0.6 % (0-3.0); LYMPH % 6.8 % (24.0-44.0); MEAN CORPUSCULAR HEMOGLOBIN 30.3 pg (27.0-33.0); MEAN CORPUSCULAR HGB CONC 31.8 g/dl (32.0-36.5); MEAN CORPUSCULAR VOLUME 95.3 fl (80.0-96.0); MONO % 7.5 % (0.0-5.0); NEUTROPHILS # 11.5 10^3/uL (1.8-7.7); PLATELET COUNT, AUTOMATED 473 10^3/uL (150-450); RED BLOOD COUNT 2.97 10^6/uL (4.30-6.10); RED CELL DISTRIBUTION WIDTH 14.8 % (11.5-14.5); WHITE BLOOD COUNT 13.9 10^3/uL (4.0-10.0)
[2018-04-30] MEDS: FUROSEMIDE 40 MG/4 ML VIAL (J1940) IV ×4 (05:48→18:47)
[2018-04-30] MEDS: LIDOCAINE 2% JELLY 30 ML TOP (05:56)
[2018-04-30 06:16] LABS: ANION GAP 11 MEQ/L (8-16); BLOOD UREA NITROGEN 18 MG/DL (7-18); CARBON DIOXIDE LEVEL 25 MEQ/L (21-32); CHLORIDE LEVEL 108 MEQ/L (98-107); CREATININE FOR GFR 1.14 MG/DL (0.70-1.30); GLOMERULAR FILTRATION RATE > 60.0 (>42); GLUCOSE, FASTING 140 MG/DL (70-100); MAGNESIUM LEVEL 2.2 MG/DL (1.8-2.4); POTASSIUM SERUM 4.4 MEQ/L (3.5-5.1); SODIUM LEVEL 144 MEQ/L (136-145)
[2018-04-30] MEDS: HumaLOG INSULIN (NovoLOG) PER UNIT SC ×4 (08:44→21:00)
[2018-04-30] MEDS: LACTOBACILLUS ACIDOPHILUS CAP (BACID) PO ×2 (08:45→18:47)
[2018-04-30] MEDS: CLORAZEPATE 3.75 MG TAB PO ×2 (08:46→21:48)
[2018-04-30] MEDS: carBAMazepine XR 200 MG TAB PO ×2 (08:47→21:47)
[2018-04-30] MEDS: ENTRESTO 97-103MG TABLET (SACUBITRIL/VALSARTAN) PO ×2 (08:47→21:47)
[2018-04-30] MEDS: CLOPIDOGREL 75 MG TAB PO (08:48)
[2018-04-30] MEDS: PANTOPRAZOLE 40MG TAB (PROTONIX) PO (08:48)
[2018-04-30] MEDS: CARVedilol 3.125 MG TAB PO ×2 (08:49→21:46)
[2018-04-30] MEDS: DIGOXIN 0.0625MG PER 1/2TABLET PO (08:50)
[2018-04-30] MEDS: lamoTRIgine 100MG TAB PO ×2 (08:51→21:47)
[2018-04-30 12:03] LABS: BEDSIDE GLUCOSE 116 MG/DL (83-110)
[2018-04-30] MEDS: ACETAMINOPHEN TAB 650MG DOSE (2X325MG) PO ×2 (16:10→21:48)
[2018-04-30 16:34] LABS: BEDSIDE GLUCOSE 97 MG/DL (83-110)
[2018-04-30] MEDS: SLF 3 ML SYR IV ×2 (18:48→21:54)
[2018-04-30 21:31] LABS: BEDSIDE GLUCOSE 155 MG/DL (83-110)
[2018-04-30] MEDS: TAMSULOSIN 0.4 MG CAP PO (21:47)
[2018-04-30] MEDS: ATORVASTATIN 20 MG TAB PO (21:47)
[2018-04-30] MEDS: SERTRALINE HCL 50 MG TAB PO (21:53)
[2018-05-01] MEDS: FUROSEMIDE 40 MG/4 ML VIAL (J1940) IV ×3 (00:27→08:42)
[2018-05-01 05:39] LABS: BEDSIDE GLUCOSE 114 MG/DL (83-110)
[2018-05-01 05:45] LABS: HEMOGLOBIN 8.7 g/dl (13.5-17.5); MEAN CORPUSCULAR HEMOGLOBIN 30.9 pg (27.0-33.0); MEAN CORPUSCULAR HGB CONC 32.2 g/dl (32.0-36.5); MEAN CORPUSCULAR VOLUME 95.7 fl (80.0-96.0); PLATELET COUNT, AUTOMATED 421 10^3/uL (150-450); RED BLOOD COUNT 2.82 10^6/uL (4.30-6.10); RED CELL DISTRIBUTION WIDTH 14.5 % (11.5-14.5); WHITE BLOOD COUNT 12.3 10^3/uL (4.0-10.0)
[2018-05-01] MEDS: SLF 3 ML SYR IV ×3 (06:00→22:20)
[2018-05-01 06:06] LABS: ANION GAP 6 MEQ/L (8-16); BLOOD UREA NITROGEN 23 MG/DL (7-18); CALCIUM LEVEL 7.8 MG/DL (8.8-10.2); CARBON DIOXIDE LEVEL 29 MEQ/L (21-32); CHLORIDE LEVEL 107 MEQ/L (98-107); CREATININE FOR GFR 1.32 MG/DL (0.70-1.30); GLOMERULAR FILTRATION RATE 56.1 (>42); GLUCOSE, FASTING 123 MG/DL (70-100); MAGNESIUM LEVEL 1.7 MG/DL (1.8-2.4); POTASSIUM SERUM 4.1 MEQ/L (3.5-5.1); SODIUM LEVEL 142 MEQ/L (136-145)
[2018-05-01] MEDS: HumaLOG INSULIN (NovoLOG) PER UNIT SC ×4 (08:26→21:00)
[2018-05-01] MEDS: PANTOPRAZOLE 40MG TAB (PROTONIX) PO (08:26)
[2018-05-01] MEDS: DIGOXIN 0.0625MG PER 1/2TABLET PO (08:27)
[2018-05-01] MEDS: CLOPIDOGREL 75 MG TAB PO (08:27)
[2018-05-01] MEDS: ENTRESTO 97-103MG TABLET (SACUBITRIL/VALSARTAN) PO ×2 (08:28→22:20)
[2018-05-01] MEDS: carBAMazepine XR 200 MG TAB PO ×2 (08:28→22:19)
[2018-05-01] MEDS: lamoTRIgine 100MG TAB PO ×2 (08:29→22:18)
[2018-05-01] MEDS: CLORAZEPATE 3.75 MG TAB PO ×2 (08:29→22:18)
[2018-05-01] MEDS: LACTOBACILLUS ACIDOPHILUS CAP (BACID) PO ×2 (08:31→18:00)
[2018-05-01] MEDS: MAGNESIUM OXIDE 400 MG TAB (MAG-OX) PO ×2 (08:31→22:19)
[2018-05-01] MEDS: CARVedilol 6.25 MG TAB PO ×2 (08:32→22:19)
[2018-05-01] MEDS: LIDOCAINE 2% JELLY 30 ML TOP ×2 (08:43→15:50)
[2018-05-01] MEDS: NORCO, ANEXSIA 5/325MG TABLET (HYDROcodone/ACETAMINOPHEN) PO ×2 (08:45→15:22)
[2018-05-01] MEDS: ALBUTEROL 90 MCG/ACT 8GM HFA INHALER INH ×3 (09:16→21:42)
[2018-05-01 11:43] LABS: BEDSIDE GLUCOSE 185 MG/DL (83-110)
[2018-05-01] MEDS: ACETAMINOPHEN TAB 650MG DOSE (2X325MG) PO (12:35)
[2018-05-01 14:16] LABS: QUANTIFERON GOLD TB Negative (Negative); TB Test (QFT) Antigen 0.02 IU/mL (.); TB Test (QFT) Antigen Minus Ni <0.01 IU/mL (.); TB Test (QFT) Mitogen >10.00 IU/mL (.); TB Test (QFT) Nil 0.03 IU/mL (.)
[2018-05-01] MEDS: FUROSEMIDE 100 MG/10 ML VIAL (J1940) IV (16:47)
[2018-05-01 17:39] LABS: BEDSIDE GLUCOSE 118 MG/DL (83-110)
[2018-05-01 21:24] LABS: BEDSIDE GLUCOSE 108 MG/DL (83-110)
[2018-05-01] MEDS: TAMSULOSIN 0.4 MG CAP PO (22:19)
[2018-05-01] MEDS: ATORVASTATIN 20 MG TAB PO (22:19)
[2018-05-01] MEDS: SERTRALINE HCL 50 MG TAB PO (22:20)
[2018-05-02] MEDS: ALBUTEROL 90 MCG/ACT 8GM HFA INHALER INH ×2 (02:43→16:41)
[2018-05-02 05:55] LABS: HEMATOCRIT 28.7 % (42.0-52.0); HEMOGLOBIN 9.4 g/dl (13.5-17.5); MEAN CORPUSCULAR HEMOGLOBIN 30.8 pg (27.0-33.0); MEAN CORPUSCULAR HGB CONC 32.8 g/dl (32.0-36.5); MEAN CORPUSCULAR VOLUME 94.1 fl (80.0-96.0); PLATELET COUNT, AUTOMATED 400 10^3/uL (150-450); RED BLOOD COUNT 3.05 10^6/uL (4.30-6.10); WHITE BLOOD COUNT 12.5 10^3/uL (4.0-10.0)
[2018-05-02] MEDS: SLF 3 ML SYR IV ×3 (06:00→21:51)
[2018-05-02 06:10] LABS: ANION GAP 10 MEQ/L (8-16); BLOOD UREA NITROGEN 29 MG/DL (7-18); CALCIUM LEVEL 7.9 MG/DL (8.8-10.2); CARBON DIOXIDE LEVEL 27 MEQ/L (21-32); CHLORIDE LEVEL 107 MEQ/L (98-107); GLOMERULAR FILTRATION RATE 57.1 (>42); GLUCOSE, FASTING 89 MG/DL (70-100); POTASSIUM SERUM 3.8 MEQ/L (3.5-5.1); SODIUM LEVEL 144 MEQ/L (136-145)
[2018-05-02] MEDS: HumaLOG INSULIN (NovoLOG) PER UNIT SC ×4 (07:30→19:58)
[2018-05-02] MEDS: LACTOBACILLUS ACIDOPHILUS CAP (BACID) PO ×2 (09:57→17:26)
[2018-05-02] MEDS: carBAMazepine XR 200 MG TAB PO ×2 (09:57→21:50)
[2018-05-02] MEDS: CLORAZEPATE 3.75 MG TAB PO ×2 (09:57→21:50)
[2018-05-02] MEDS: lamoTRIgine 100MG TAB PO ×2 (09:57→21:50)
[2018-05-02] MEDS: DIGOXIN 0.0625MG PER 1/2TABLET PO (10:01)
[2018-05-02] MEDS: MAGNESIUM OXIDE 400 MG TAB (MAG-OX) PO ×2 (10:02→21:50)
[2018-05-02] MEDS: PANTOPRAZOLE 40MG TAB (PROTONIX) PO (10:02)
[2018-05-02] MEDS: CLOPIDOGREL 75 MG TAB PO (10:02)
[2018-05-02] MEDS: ENTRESTO 97-103MG TABLET (SACUBITRIL/VALSARTAN) PO ×2 (10:02→21:00)
[2018-05-02] MEDS: CARVedilol 6.25 MG TAB PO ×2 (10:02→21:00)
[2018-05-02] MEDS: FUROSEMIDE 100 MG/10 ML VIAL (J1940) IV ×2 (10:03→17:25)
[2018-05-02 11:39] LABS: BEDSIDE GLUCOSE 143 MG/DL (83-110)
[2018-05-02] MEDS: NORCO, ANEXSIA 5/325MG TABLET (HYDROcodone/ACETAMINOPHEN) PO ×2 (12:50→19:00)
[2018-05-02 16:49] LABS: BEDSIDE GLUCOSE 137 MG/DL (83-110)
[2018-05-02] MEDS: LIDOCAINE 2% 5ML JELLY UROJET TOP (18:19)
[2018-05-02 19:38] LABS: BEDSIDE GLUCOSE 184 MG/DL (83-110)
[2018-05-02] MEDS: ATORVASTATIN 20 MG TAB PO (21:50)
[2018-05-02] MEDS: SERTRALINE HCL 50 MG TAB PO (21:50)
[2018-05-02] MEDS: TAMSULOSIN 0.4 MG CAP PO (21:50)
[2018-05-03 04:40] LABS: HEMOGLOBIN 8.8 g/dl (13.5-17.5); MEAN CORPUSCULAR HEMOGLOBIN 30.1 pg (27.0-33.0); MEAN CORPUSCULAR HGB CONC 31.4 g/dl (32.0-36.5); MEAN CORPUSCULAR VOLUME 95.9 fl (80.0-96.0); PLATELET COUNT, AUTOMATED 418 10^3/uL (150-450); RED BLOOD COUNT 2.92 10^6/uL (4.30-6.10); WHITE BLOOD COUNT 13.7 10^3/uL (4.0-10.0)
[2018-05-03 04:50] LABS: ANION GAP 8 MEQ/L (8-16); BLOOD UREA NITROGEN 30 MG/DL (7-18); CALCIUM LEVEL 7.9 MG/DL (8.8-10.2); CARBON DIOXIDE LEVEL 28 MEQ/L (21-32); CHLORIDE LEVEL 105 MEQ/L (98-107); CREATININE FOR GFR 1.45 MG/DL (0.70-1.30); GLOMERULAR FILTRATION RATE 50.4 (>42); GLUCOSE, FASTING 100 MG/DL (70-100); MAGNESIUM LEVEL 1.9 MG/DL (1.8-2.4); POTASSIUM SERUM 3.5 MEQ/L (3.5-5.1); SODIUM LEVEL 141 MEQ/L (136-145)
[2018-05-03] MEDS: SLF 3 ML SYR IV ×3 (05:59→21:26)
[2018-05-03] MEDS: HumaLOG INSULIN (NovoLOG) PER UNIT SC ×4 (07:30→21:00)
[2018-05-03] MEDS: CLORAZEPATE 3.75 MG TAB PO ×2 (09:14→20:52)
[2018-05-03] MEDS: FUROSEMIDE 100 MG/10 ML VIAL (J1940) IV ×2 (09:14→17:43)
[2018-05-03] MEDS: carBAMazepine XR 200 MG TAB PO ×2 (09:14→20:52)
[2018-05-03] MEDS: DIGOXIN 0.0625MG PER 1/2TABLET PO (09:14)
[2018-05-03] MEDS: CLOPIDOGREL 75 MG TAB PO (09:15)
[2018-05-03] MEDS: LACTOBACILLUS ACIDOPHILUS CAP (BACID) PO ×2 (09:15→17:43)
[2018-05-03] MEDS: ENTRESTO 97-103MG TABLET (SACUBITRIL/VALSARTAN) PO ×2 (09:15→20:50)
[2018-05-03] MEDS: lamoTRIgine 100MG TAB PO ×2 (09:15→20:51)
[2018-05-03] MEDS: PANTOPRAZOLE 40MG TAB (PROTONIX) PO (09:15)
[2018-05-03] MEDS: MAGNESIUM OXIDE 400 MG TAB (MAG-OX) PO ×2 (09:15→20:52)
[2018-05-03] MEDS: CARVedilol 6.25 MG TAB PO ×2 (09:16→20:50)
[2018-05-03] MEDS: ALBUTEROL 90 MCG/ACT 8GM HFA INHALER INH (10:39)
[2018-05-03 11:41] LABS: BEDSIDE GLUCOSE 151 MG/DL (83-110)
[2018-05-03 17:04] LABS: BEDSIDE GLUCOSE 88 MG/DL (83-110)
[2018-05-03] MEDS: LIDOCAINE 2% JELLY 30 ML TOP (17:43)
[2018-05-03 20:39] LABS: BEDSIDE GLUCOSE 162 MG/DL (83-110)
[2018-05-03] MEDS: TAMSULOSIN 0.4 MG CAP PO (20:50)
[2018-05-03] MEDS: ATORVASTATIN 20 MG TAB PO (20:51)
[2018-05-03] MEDS: SERTRALINE HCL 50 MG TAB PO (20:53)
[2018-05-04 05:02] LABS: HEMATOCRIT 27.1 % (42.0-52.0); HEMOGLOBIN 8.6 g/dl (13.5-17.5); MEAN CORPUSCULAR HEMOGLOBIN 30.5 pg (27.0-33.0); MEAN CORPUSCULAR HGB CONC 31.7 g/dl (32.0-36.5); MEAN CORPUSCULAR VOLUME 96.1 fl (80.0-96.0); PLATELET COUNT, AUTOMATED 420 10^3/uL (150-450); RED BLOOD COUNT 2.82 10^6/uL (4.30-6.10); RED CELL DISTRIBUTION WIDTH 13.8 % (11.5-14.5); WHITE BLOOD COUNT 11.8 10^3/uL (4.0-10.0)
[2018-05-04] MEDS: SLF 3 ML SYR IV ×3 (05:05→22:00)
[2018-05-04 05:16] LABS: ANION GAP 8 MEQ/L (8-16); BLOOD UREA NITROGEN 31 MG/DL (7-18); CALCIUM LEVEL 7.8 MG/DL (8.8-10.2); CARBON DIOXIDE LEVEL 30 MEQ/L (21-32); CHLORIDE LEVEL 104 MEQ/L (98-107); CREATININE FOR GFR 1.29 MG/DL (0.70-1.30); GLOMERULAR FILTRATION RATE 57.6 (>42); GLUCOSE, FASTING 108 MG/DL (70-100); POTASSIUM SERUM 3.9 MEQ/L (3.5-5.1); SODIUM LEVEL 142 MEQ/L (136-145)
[2018-05-04] MEDS: CLORAZEPATE 3.75 MG TAB PO ×2 (09:26→22:26)
[2018-05-04] MEDS: PANTOPRAZOLE 40MG TAB (PROTONIX) PO (09:26)
[2018-05-04] MEDS: LACTOBACILLUS ACIDOPHILUS CAP (BACID) PO ×2 (09:26→18:00)
[2018-05-04] MEDS: DIGOXIN 0.0625MG PER 1/2TABLET PO (09:27)
[2018-05-04] MEDS: MAGNESIUM OXIDE 400 MG TAB (MAG-OX) PO ×2 (09:27→22:25)
[2018-05-04] MEDS: CARVedilol 12.5 MG TAB PO ×2 (09:28→21:00)
[2018-05-04] MEDS: CLOPIDOGREL 75 MG TAB PO (09:28)
[2018-05-04] MEDS: lamoTRIgine 100MG TAB PO ×2 (09:28→22:24)
[2018-05-04] MEDS: ENTRESTO 97-103MG TABLET (SACUBITRIL/VALSARTAN) PO ×2 (09:28→22:23)
[2018-05-04] MEDS: carBAMazepine XR 200 MG TAB PO ×2 (09:28→22:25)
[2018-05-04] MEDS: FUROSEMIDE 100 MG/10 ML VIAL (J1940) IV ×2 (09:29→17:00)
[2018-05-04] MEDS: NORCO, ANEXSIA 5/325MG TABLET (HYDROcodone/ACETAMINOPHEN) PO (09:30)
[2018-05-04] MEDS: HumaLOG INSULIN (NovoLOG) PER UNIT SC ×4 (09:30→21:00)
[2018-05-04] MEDS ORDERED: IRON SUCROSE 100MG 5ML VIAL (J1756 PER 1MG) IV (11:15)
[2018-05-04 11:37] LABS: BEDSIDE GLUCOSE 152 MG/DL (83-110)
[2018-05-04] MEDS: ASCORBIC ACID 250 MG TAB PO ×2 (12:14→22:26)
[2018-05-04] MEDS: SENOKOT S TAB PO ×2 (12:14→22:25)
[2018-05-04] MEDS: ALBUTEROL 90 MCG/ACT 8GM HFA INHALER INH (15:31)
[2018-05-04 16:43] LABS: BEDSIDE GLUCOSE 112 MG/DL (83-110)
[2018-05-04] MEDS: IRON SUCROSE 200 MG in NS 100 ML IV (22:05)
[2018-05-04] MEDS: FERROUS SULFATE 325MG TAB PO (22:23)
[2018-05-04] MEDS: ATORVASTATIN 20 MG TAB PO (22:24)
[2018-05-04] MEDS: TAMSULOSIN 0.4 MG CAP PO (22:24)
[2018-05-04] MEDS: SERTRALINE HCL 50 MG TAB PO (22:26)
[2018-05-04 22:50] LABS: BEDSIDE GLUCOSE 153 MG/DL (83-110)
[2018-05-04] MEDS: ACETAMINOPHEN TAB 650MG DOSE (2X325MG) PO (23:13)
[2018-05-04] MEDS: LIDOCAINE 2% JELLY 30 ML TOP (23:39)
[2018-05-05] MEDS: SLF 3 ML SYR IV ×3 (05:18→23:42)
[2018-05-05 06:18] LABS: MEAN CORPUSCULAR HEMOGLOBIN 30.3 pg (27.0-33.0); MEAN CORPUSCULAR HGB CONC 32.1 g/dl (32.0-36.5); MEAN CORPUSCULAR VOLUME 94.3 fl (80.0-96.0); PLATELET COUNT, AUTOMATED 397 10^3/uL (150-450); RED BLOOD COUNT 2.97 10^6/uL (4.30-6.10); RED CELL DISTRIBUTION WIDTH 13.7 % (11.5-14.5)
[2018-05-05 06:38] LABS: ANION GAP 8 MEQ/L (8-16); BLOOD UREA NITROGEN 35 MG/DL (7-18); CALCIUM LEVEL 8.1 MG/DL (8.8-10.2); CARBON DIOXIDE LEVEL 29 MEQ/L (21-32); CHLORIDE LEVEL 105 MEQ/L (98-107); CREATININE FOR GFR 1.34 MG/DL (0.70-1.30); GLOMERULAR FILTRATION RATE 55.2 (>42); GLUCOSE, FASTING 117 MG/DL (70-100); MAGNESIUM LEVEL 2.3 MG/DL (1.8-2.4); POTASSIUM SERUM 3.7 MEQ/L (3.5-5.1); SODIUM LEVEL 142 MEQ/L (136-145)
[2018-05-05] MEDS: HumaLOG INSULIN (NovoLOG) PER UNIT SC ×4 (07:30→21:00)
[2018-05-05] MEDS: lamoTRIgine 100MG TAB PO ×2 (08:36→21:26)
[2018-05-05] MEDS: MAGNESIUM OXIDE 400 MG TAB (MAG-OX) PO ×2 (08:36→21:26)
[2018-05-05] MEDS: SENOKOT S TAB PO ×2 (08:36→21:26)
[2018-05-05] MEDS: ENTRESTO 97-103MG TABLET (SACUBITRIL/VALSARTAN) PO ×2 (08:36→21:26)
[2018-05-05] MEDS: CLOPIDOGREL 75 MG TAB PO (08:36)
[2018-05-05] MEDS: FERROUS SULFATE 325MG TAB PO ×2 (08:36→21:26)
[2018-05-05] MEDS: DIGOXIN 0.0625MG PER 1/2TABLET PO (08:37)
[2018-05-05] MEDS: carBAMazepine XR 200 MG TAB PO ×2 (08:37→21:26)
[2018-05-05] MEDS: LACTOBACILLUS ACIDOPHILUS CAP (BACID) PO ×2 (08:37→16:57)
[2018-05-05] MEDS: PANTOPRAZOLE 40MG TAB (PROTONIX) PO (08:37)
[2018-05-05] MEDS: CARVedilol 12.5 MG TAB PO ×2 (08:38→19:44)
[2018-05-05] MEDS: TORSEMIDE 20 MG TAB PO ×2 (08:38→16:57)
[2018-05-05] MEDS: CLORAZEPATE 3.75 MG TAB PO ×2 (09:00→23:42)
[2018-05-05] MEDS: ASCORBIC ACID 250 MG TAB PO ×2 (09:00→23:43)
[2018-05-05 11:31] LABS: BEDSIDE GLUCOSE 145 MG/DL (83-110)
[2018-05-05] MEDS: ALBUTEROL 90 MCG/ACT 8GM HFA INHALER INH (15:53)
[2018-05-05 16:55] LABS: BEDSIDE GLUCOSE 125 MG/DL (83-110)
[2018-05-05] MEDS: LOPERAMIDE 2 MG CAP PO (16:57)
[2018-05-05 20:09] LABS: BEDSIDE GLUCOSE 228 MG/DL (83-110)
[2018-05-05] MEDS: ATORVASTATIN 20 MG TAB PO (21:25)
[2018-05-05] MEDS: TAMSULOSIN 0.4 MG CAP PO (21:26)
[2018-05-05] MEDS: SERTRALINE HCL 50 MG TAB PO (21:26)
[2018-05-05] MEDS: ACETAMINOPHEN TAB 650MG DOSE (2X325MG) PO (23:42)
[2018-05-06] MEDS: SLF 3 ML SYR IV (06:00)
[2018-05-06 06:08] LABS: HEMATOCRIT 28.2 % (42.0-52.0); HEMOGLOBIN 8.9 g/dl (13.5-17.5); MEAN CORPUSCULAR HEMOGLOBIN 30.1 pg (27.0-33.0); MEAN CORPUSCULAR HGB CONC 31.6 g/dl (32.0-36.5); MEAN CORPUSCULAR VOLUME 95.3 fl (80.0-96.0); PLATELET COUNT, AUTOMATED 376 10^3/uL (150-450); RED BLOOD COUNT 2.96 10^6/uL (4.30-6.10); RED CELL DISTRIBUTION WIDTH 13.9 % (11.5-14.5); WHITE BLOOD COUNT 12.3 10^3/uL (4.0-10.0)
[2018-05-06 06:28] LABS: ANION GAP 8 MEQ/L (8-16); BLOOD UREA NITROGEN 35 MG/DL (7-18); CALCIUM LEVEL 8.4 MG/DL (8.8-10.2); CARBON DIOXIDE LEVEL 29 MEQ/L (21-32); CHLORIDE LEVEL 105 MEQ/L (98-107); GLOMERULAR FILTRATION RATE 52.5 (>42); GLUCOSE, FASTING 117 MG/DL (70-100); POTASSIUM SERUM 3.6 MEQ/L (3.5-5.1); SODIUM LEVEL 142 MEQ/L (136-145)
[2018-05-06] MEDS: CARVedilol 12.5 MG TAB PO ×2 (09:00→21:04)
[2018-05-06] MEDS: CLOPIDOGREL 75 MG TAB PO (09:04)
[2018-05-06] MEDS: ENTRESTO 97-103MG TABLET (SACUBITRIL/VALSARTAN) PO ×2 (09:04→21:01)
[2018-05-06] MEDS: DIGOXIN 0.0625MG PER 1/2TABLET PO (09:04)
[2018-05-06] MEDS: carBAMazepine XR 200 MG TAB PO ×2 (09:04→21:01)
[2018-05-06] MEDS: TORSEMIDE 20 MG TAB PO ×2 (09:05→16:59)
[2018-05-06] MEDS: PANTOPRAZOLE 40MG TAB (PROTONIX) PO (09:05)
[2018-05-06] MEDS: lamoTRIgine 100MG TAB PO ×2 (09:05→21:02)
[2018-05-06] MEDS: FERROUS SULFATE 325MG TAB PO ×2 (09:08→21:01)
[2018-05-06] MEDS: SENOKOT S TAB PO ×2 (09:08→21:01)
[2018-05-06] MEDS: LACTOBACILLUS ACIDOPHILUS CAP (BACID) PO ×2 (09:08→17:00)
[2018-05-06] MEDS: MAGNESIUM OXIDE 400 MG TAB (MAG-OX) PO ×2 (09:08→21:03)
[2018-05-06] MEDS: HumaLOG INSULIN (NovoLOG) PER UNIT SC ×4 (09:09→21:00)
[2018-05-06] MEDS: ALBUTEROL 90 MCG/ACT 8GM HFA INHALER INH ×2 (09:39→14:07)
[2018-05-06 11:58] LABS: BEDSIDE GLUCOSE 134 MG/DL (83-110)
[2018-05-06] MEDS: ASCORBIC ACID 250 MG TAB PO ×2 (12:34→21:02)
[2018-05-06] MEDS: CLORAZEPATE 3.75 MG TAB PO ×2 (12:35→21:14)
[2018-05-06 17:42] LABS: BEDSIDE GLUCOSE 116 MG/DL (83-110)
[2018-05-06] MEDS: TAMSULOSIN 0.4 MG CAP PO (21:02)
[2018-05-06] MEDS: ATORVASTATIN 20 MG TAB PO (21:02)
[2018-05-06] MEDS: SERTRALINE HCL 50 MG TAB PO (21:02)
[2018-05-06 21:12] LABS: BEDSIDE GLUCOSE 176 MG/DL (83-110)
[2018-05-07 06:39] LABS: HEMATOCRIT 27.6 % (42.0-52.0); HEMOGLOBIN 8.8 g/dl (13.5-17.5); MEAN CORPUSCULAR HEMOGLOBIN 30.8 pg (27.0-33.0); MEAN CORPUSCULAR HGB CONC 31.9 g/dl (32.0-36.5); MEAN CORPUSCULAR VOLUME 96.5 fl (80.0-96.0); PLATELET COUNT, AUTOMATED 348 10^3/uL (150-450); RED BLOOD COUNT 2.86 10^6/uL (4.30-6.10); RED CELL DISTRIBUTION WIDTH 13.9 % (11.5-14.5)
[2018-05-07 06:57] LABS: ANION GAP 9 MEQ/L (8-16); BLOOD UREA NITROGEN 32 MG/DL (7-18); CARBON DIOXIDE LEVEL 29 MEQ/L (21-32); CHLORIDE LEVEL 105 MEQ/L (98-107); CREATININE FOR GFR 1.43 MG/DL (0.70-1.30); GLOMERULAR FILTRATION RATE 51.2 (>42); GLUCOSE, FASTING 113 MG/DL (70-100); POTASSIUM SERUM 3.5 MEQ/L (3.5-5.1); SODIUM LEVEL 143 MEQ/L (136-145)
[2018-05-07] MEDS: HumaLOG INSULIN (NovoLOG) PER UNIT SC ×4 (07:30→21:00)
[2018-05-07] MEDS: LACTOBACILLUS ACIDOPHILUS CAP (BACID) PO ×2 (07:44→16:50)
[2018-05-07] MEDS: DIGOXIN 0.0625MG PER 1/2TABLET PO (07:45)
[2018-05-07] MEDS: FERROUS SULFATE 325MG TAB PO ×2 (07:45→20:49)
[2018-05-07] MEDS: ASCORBIC ACID 250 MG TAB PO ×2 (07:45→20:49)
[2018-05-07] MEDS: SENOKOT S TAB PO ×2 (07:45→20:50)
[2018-05-07] MEDS: carBAMazepine XR 200 MG TAB PO ×2 (07:45→20:51)
[2018-05-07] MEDS: CLOPIDOGREL 75 MG TAB PO (07:45)
[2018-05-07] MEDS: ENTRESTO 97-103MG TABLET (SACUBITRIL/VALSARTAN) PO ×2 (07:46→20:50)
[2018-05-07] MEDS: lamoTRIgine 100MG TAB PO ×2 (07:46→20:50)
[2018-05-07] MEDS: MAGNESIUM OXIDE 400 MG TAB (MAG-OX) PO ×2 (07:46→20:49)
[2018-05-07] MEDS: CLORAZEPATE 3.75 MG TAB PO ×2 (07:46→20:49)
[2018-05-07] MEDS: PANTOPRAZOLE 40MG TAB (PROTONIX) PO (07:46)
[2018-05-07] MEDS: TORSEMIDE 20 MG TAB PO ×2 (07:46→16:49)
[2018-05-07] MEDS: ALBUTEROL 90 MCG/ACT 8GM HFA INHALER INH ×2 (07:50→14:18)
[2018-05-07] MEDS: CARVedilol 12.5 MG TAB PO ×2 (07:51→20:50)
[2018-05-07 12:02] LABS: BEDSIDE GLUCOSE 148 MG/DL (83-110)
[2018-05-07] MEDS: LIDOCAINE 2% JELLY 30 ML TOP (15:25)
[2018-05-07 16:37] LABS: BEDSIDE GLUCOSE 115 MG/DL (83-110)
[2018-05-07] MEDS: ACETAMINOPHEN TAB 650MG DOSE (2X325MG) PO (16:50)
[2018-05-07 20:29] LABS: BEDSIDE GLUCOSE 167 MG/DL (83-110)
[2018-05-07] MEDS: NYSTATIN 100,000 UNITS/GM TOPICAL PWD 15 GM TOP (20:49)
[2018-05-07] MEDS: TAMSULOSIN 0.4 MG CAP PO (20:50)
[2018-05-07] MEDS: SERTRALINE HCL 50 MG TAB PO (20:51)
[2018-05-07] MEDS: ATORVASTATIN 20 MG TAB PO (21:00)
[2018-05-07 22:18] LABS: KETONE, URINE AUTO RFX NEGATIVE (NEGATIVE); LEUKOCYTE ESTERASE UR AUTO RFX 3+ (NEGATIVE); MUCUS, URINE RFX SMALL (NEGATIVE); NITRITE, URINE AUTO RFX NEGATIVE (NEGATIVE); RBC, URINE AUTO RFX 26 /HPF (0-3); SPECIFIC GRAVITY UR AUTO RFX 1.011 (1.002-1.035); SQUAM EPITHELIAL CELL UR AURFX 0 /HPF (0-6); WBC, URINE AUTO RFX 85 /HPF (0-3)
[2018-05-07] MEDS: LIDOCAINE 2% 5ML JELLY UROJET TOP (22:47)
[2018-05-08 06:40] LABS: C REACTIVE PROTEIN QUANTITATIV 0.97 MG/DL (0.00-0.30)
[2018-05-08 06:46] LABS: BEDSIDE GLUCOSE 124 MG/DL (83-110)
[2018-05-08] MEDS: HumaLOG INSULIN (NovoLOG) PER UNIT SC ×4 (08:12→20:59)
[2018-05-08] MEDS: CLORAZEPATE 3.75 MG TAB PO ×2 (08:12→20:30)
[2018-05-08] MEDS: DIGOXIN 0.0625MG PER 1/2TABLET PO (08:12)
[2018-05-08] MEDS: TORSEMIDE 20 MG TAB PO ×2 (08:13→17:46)
[2018-05-08] MEDS: LACTOBACILLUS ACIDOPHILUS CAP (BACID) PO ×2 (08:13→17:46)
[2018-05-08] MEDS: MAGNESIUM OXIDE 400 MG TAB (MAG-OX) PO ×2 (08:13→20:24)
[2018-05-08] MEDS: lamoTRIgine 100MG TAB PO ×2 (08:13→20:24)
[2018-05-08] MEDS: SENOKOT S TAB PO ×2 (08:13→20:23)
[2018-05-08] MEDS: ENTRESTO 97-103MG TABLET (SACUBITRIL/VALSARTAN) PO ×2 (08:13→20:23)
[2018-05-08] MEDS: FERROUS SULFATE 325MG TAB PO ×2 (08:13→20:23)
[2018-05-08] MEDS: carBAMazepine XR 200 MG TAB PO ×2 (08:13→20:24)
[2018-05-08] MEDS: CLOPIDOGREL 75 MG TAB PO (08:14)
[2018-05-08] MEDS: NYSTATIN 100,000 UNITS/GM TOPICAL PWD 15 GM TOP ×2 (08:14→20:25)
[2018-05-08] MEDS: PANTOPRAZOLE 40MG TAB (PROTONIX) PO (08:14)
[2018-05-08] MEDS: CARVedilol 12.5 MG TAB PO ×2 (08:14→20:30)
[2018-05-08 09:37] LABS: ANION GAP 10 MEQ/L (8-16); BLOOD UREA NITROGEN 35 MG/DL (7-18); CALCIUM LEVEL 7.7 MG/DL (8.8-10.2); CARBON DIOXIDE LEVEL 26 MEQ/L (21-32); CHLORIDE LEVEL 107 MEQ/L (98-107); CREATININE FOR GFR 1.32 MG/DL (0.70-1.30); GLOMERULAR FILTRATION RATE 56.1 (>42); GLUCOSE, FASTING 123 MG/DL (70-100); POTASSIUM SERUM 3.7 MEQ/L (3.5-5.1); SODIUM LEVEL 143 MEQ/L (136-145)
[2018-05-08 10:08] LABS: BASO % 0.3 % (0.0-1.0); EOS # 0.5 10^3/uL (0.0-0.50); EOS % 3.4 % (0.0-3.0); HEMATOCRIT 29.4 % (42.0-52.0); HEMOGLOBIN 9.2 g/dl (13.5-17.5); IMMATURE GRANULOCYTE % 0.4 % (0-3.0); LYMPH # 0.8 10^3/uL (1.5-4.5); LYMPH % 5.8 % (24.0-44.0); MEAN CORPUSCULAR HEMOGLOBIN 30.7 pg (27.0-33.0); MEAN CORPUSCULAR HGB CONC 31.3 g/dl (32.0-36.5); MONO # 0.8 10^3/uL (0.0-0.8); NEUTROPHILS # 11.6 10^3/uL (1.8-7.7); NEUTROPHILS % 84.1 % (36.0-66.0); PLATELET COUNT, AUTOMATED 377 10^3/uL (150-450); RED CELL DISTRIBUTION WIDTH 14.3 % (11.5-14.5); WHITE BLOOD COUNT 13.7 10^3/uL (4.0-10.0)
[2018-05-08] MEDS: ASCORBIC ACID 250 MG TAB PO ×2 (10:15→20:23)
[2018-05-08 11:26] LABS: BEDSIDE GLUCOSE 149 MG/DL (83-110)
[2018-05-08] MEDS: ALBUTEROL 90 MCG/ACT 8GM HFA INHALER INH ×2 (15:23→23:05)
[2018-05-08 16:49] LABS: BEDSIDE GLUCOSE 139 MG/DL (83-110)
[2018-05-08] MEDS: ATORVASTATIN 20 MG TAB PO (20:23)
[2018-05-08] MEDS: TAMSULOSIN 0.4 MG CAP PO (20:23)
[2018-05-08] MEDS: SERTRALINE HCL 50 MG TAB PO (20:24)
[2018-05-08 20:39] LABS: BEDSIDE GLUCOSE 184 MG/DL (83-110)
[2018-05-09 06:14] LABS: BASO # 0.1 10^3/uL (0.0-0.2); BASO % 0.4 % (0.0-1.0); EOS # 0.4 10^3/uL (0.0-0.50); EOS % 3.5 % (0.0-3.0); HEMOGLOBIN 9.3 g/dl (13.5-17.5); IMMATURE GRANULOCYTE % 0.5 % (0-3.0); LYMPH # 0.9 10^3/uL (1.5-4.5); LYMPH % 7.2 % (24.0-44.0); MEAN CORPUSCULAR HEMOGLOBIN 30.7 pg (27.0-33.0); MEAN CORPUSCULAR HGB CONC 32.1 g/dl (32.0-36.5); MEAN CORPUSCULAR VOLUME 95.7 fl (80.0-96.0); MONO # 0.9 10^3/uL (0.0-0.8); MONO % 7.4 % (0.0-5.0); NEUTROPHILS # 9.7 10^3/uL (1.8-7.7); PLATELET COUNT, AUTOMATED 420 10^3/uL (150-450); RED BLOOD COUNT 3.03 10^6/uL (4.30-6.10); RED CELL DISTRIBUTION WIDTH 14.3 % (11.5-14.5)
[2018-05-09 06:29] LABS: ANION GAP 8 MEQ/L (8-16); BLOOD UREA NITROGEN 38 MG/DL (7-18); C REACTIVE PROTEIN QUANTITATIV 1.08 MG/DL (0.00-0.30); CALCIUM LEVEL 8.5 MG/DL (8.8-10.2); CARBON DIOXIDE LEVEL 29 MEQ/L (21-32); CHLORIDE LEVEL 105 MEQ/L (98-107); CREATININE FOR GFR 1.39 MG/DL (0.70-1.30); GLOMERULAR FILTRATION RATE 52.9 (>42); GLUCOSE, FASTING 116 MG/DL (70-100); MAGNESIUM LEVEL 2.1 MG/DL (1.8-2.4); POTASSIUM SERUM 3.9 MEQ/L (3.5-5.1); SODIUM LEVEL 142 MEQ/L (136-145)
[2018-05-09] MEDS: SENOKOT S TAB PO ×2 (09:25→21:00)
[2018-05-09] MEDS: MAGNESIUM OXIDE 400 MG TAB (MAG-OX) PO ×2 (09:25→22:06)
[2018-05-09] MEDS: ASCORBIC ACID 250 MG TAB PO ×2 (09:25→22:05)
[2018-05-09] MEDS: FERROUS SULFATE 325MG TAB PO ×2 (09:25→22:11)
[2018-05-09] MEDS: PANTOPRAZOLE 40MG TAB (PROTONIX) PO (09:25)
[2018-05-09] MEDS: TORSEMIDE 20 MG TAB PO ×2 (09:26→18:09)
[2018-05-09] MEDS: CARVedilol 12.5 MG TAB PO ×2 (09:26→22:10)
[2018-05-09] MEDS: LACTOBACILLUS ACIDOPHILUS CAP (BACID) PO ×2 (09:26→18:08)
[2018-05-09] MEDS: CLOPIDOGREL 75 MG TAB PO (09:26)
[2018-05-09] MEDS: lamoTRIgine 100MG TAB PO ×2 (09:26→22:06)
[2018-05-09] MEDS: carBAMazepine XR 200 MG TAB PO ×2 (09:26→22:06)
[2018-05-09] MEDS: ENTRESTO 97-103MG TABLET (SACUBITRIL/VALSARTAN) PO ×2 (09:27→22:05)
[2018-05-09] MEDS: HumaLOG INSULIN (NovoLOG) PER UNIT SC ×5 (09:27→21:00)
[2018-05-09] MEDS: NYSTATIN 100,000 UNITS/GM TOPICAL PWD 15 GM TOP ×2 (09:29→22:11)
[2018-05-09] MEDS: LOPERAMIDE 2 MG CAP PO (09:29)
[2018-05-09] MEDS: CLORAZEPATE 3.75 MG TAB PO ×2 (09:32→22:11)
[2018-05-09 11:24] LABS: BEDSIDE GLUCOSE 130 MG/DL (83-110)
[2018-05-09 16:51] LABS: BEDSIDE GLUCOSE 113 MG/DL (83-110)
[2018-05-09 20:26] LABS: BEDSIDE GLUCOSE 132 MG/DL (83-110)
[2018-05-09] MEDS: ATORVASTATIN 20 MG TAB PO (22:05)
[2018-05-09] MEDS: SERTRALINE HCL 50 MG TAB PO (22:05)
[2018-05-09] MEDS: TAMSULOSIN 0.4 MG CAP PO (22:06)
[2018-05-10 06:37] LABS: BASO # 0.1 10^3/uL (0.0-0.2); BASO % 0.4 % (0.0-1.0); EOS # 0.4 10^3/uL (0.0-0.50); EOS % 3.8 % (0.0-3.0); HEMATOCRIT 27.8 % (42.0-52.0); HEMOGLOBIN 8.9 g/dl (13.5-17.5); IMMATURE GRANULOCYTE % 0.5 % (0-3.0); LYMPH # 0.9 10^3/uL (1.5-4.5); MEAN CORPUSCULAR HEMOGLOBIN 30.6 pg (27.0-33.0); MEAN CORPUSCULAR VOLUME 95.5 fl (80.0-96.0); MONO # 0.7 10^3/uL (0.0-0.8); MONO % 6.1 % (0.0-5.0); NEUTROPHILS # 9.1 10^3/uL (1.8-7.7); NEUTROPHILS % 81.2 % (36.0-66.0); PLATELET COUNT, AUTOMATED 381 10^3/uL (150-450); RED BLOOD COUNT 2.91 10^6/uL (4.30-6.10); RED CELL DISTRIBUTION WIDTH 14.4 % (11.5-14.5); WHITE BLOOD COUNT 11.2 10^3/uL (4.0-10.0)
[2018-05-10 07:03] LABS: ANION GAP 11 MEQ/L (8-16); BLOOD UREA NITROGEN 36 MG/DL (7-18); C REACTIVE PROTEIN QUANTITATIV 1.15 MG/DL (0.00-0.30); CALCIUM LEVEL 8.2 MG/DL (8.8-10.2); CARBON DIOXIDE LEVEL 27 MEQ/L (21-32); CHLORIDE LEVEL 107 MEQ/L (98-107); CREATININE FOR GFR 1.37 MG/DL (0.70-1.30); GLOMERULAR FILTRATION RATE 53.8 (>42); GLUCOSE, FASTING 108 MG/DL (70-100); MAGNESIUM LEVEL 2.1 MG/DL (1.8-2.4); POTASSIUM SERUM 3.4 MEQ/L (3.5-5.1); SODIUM LEVEL 145 MEQ/L (136-145)
[2018-05-10] MEDS: POTASSIUM CHLORIDE 10 MEQ SR TABLET PO (08:27)
[2018-05-10] MEDS: CLORAZEPATE 3.75 MG TAB PO ×2 (08:28→21:13)
[2018-05-10] MEDS: FERROUS SULFATE 325MG TAB PO ×2 (08:28→21:20)
[2018-05-10] MEDS: PANTOPRAZOLE 40MG TAB (PROTONIX) PO (08:28)
[2018-05-10] MEDS: SENOKOT S TAB PO ×2 (08:28→21:00)
[2018-05-10] MEDS: ASCORBIC ACID 250 MG TAB PO ×2 (08:28→21:20)
[2018-05-10] MEDS: HumaLOG INSULIN (NovoLOG) PER UNIT SC ×4 (08:28→21:00)
[2018-05-10] MEDS: CLOPIDOGREL 75 MG TAB PO (08:28)
[2018-05-10] MEDS: LACTOBACILLUS ACIDOPHILUS CAP (BACID) PO ×2 (08:28→17:31)
[2018-05-10] MEDS: MAGNESIUM OXIDE 400 MG TAB (MAG-OX) PO ×2 (08:28→21:20)
[2018-05-10] MEDS: CARVedilol 12.5 MG TAB PO ×2 (08:29→21:00)
[2018-05-10] MEDS: ENTRESTO 97-103MG TABLET (SACUBITRIL/VALSARTAN) PO ×2 (08:29→21:20)
[2018-05-10] MEDS: carBAMazepine XR 200 MG TAB PO ×2 (08:29→21:20)
[2018-05-10] MEDS: lamoTRIgine 100MG TAB PO ×2 (08:29→21:20)
[2018-05-10] MEDS: TORSEMIDE 20 MG TAB PO ×2 (08:29→17:31)
[2018-05-10] MEDS: NYSTATIN 100,000 UNITS/GM TOPICAL PWD 15 GM TOP ×2 (08:30→21:22)
[2018-05-10 11:26] LABS: BEDSIDE GLUCOSE 120 MG/DL (83-110)
[2018-05-10 16:22] LABS: BEDSIDE GLUCOSE 152 MG/DL (83-110)
[2018-05-10 20:55] LABS: BEDSIDE GLUCOSE 173 MG/DL (83-110)
[2018-05-10] MEDS: ACETAMINOPHEN TAB 650MG DOSE (2X325MG) PO (21:19)
[2018-05-10] MEDS: SERTRALINE HCL 50 MG TAB PO (21:20)
[2018-05-10] MEDS: ATORVASTATIN 20 MG TAB PO (21:20)
[2018-05-10] MEDS: TAMSULOSIN 0.4 MG CAP PO (21:20)
[2018-05-11] MEDS: ALBUTEROL 90 MCG/ACT 8GM HFA INHALER INH ×2 (03:36→15:12)
[2018-05-11 06:54] LABS: BASO % 0.3 % (0.0-1.0); EOS # 0.5 10^3/uL (0.0-0.50); EOS % 4.2 % (0.0-3.0); HEMATOCRIT 27.5 % (42.0-52.0); HEMOGLOBIN 8.8 g/dl (13.5-17.5); IMMATURE GRANULOCYTE % 0.4 % (0-3.0); LYMPH % 8.9 % (24.0-44.0); MEAN CORPUSCULAR HEMOGLOBIN 30.7 pg (27.0-33.0); MEAN CORPUSCULAR VOLUME 95.8 fl (80.0-96.0); MONO # 0.8 10^3/uL (0.0-0.8); MONO % 6.8 % (0.0-5.0); NEUTROPHILS # 9.3 10^3/uL (1.8-7.7); NEUTROPHILS % 79.4 % (36.0-66.0); PLATELET COUNT, AUTOMATED 389 10^3/uL (150-450); RED BLOOD COUNT 2.87 10^6/uL (4.30-6.10); RED CELL DISTRIBUTION WIDTH 14.3 % (11.5-14.5); WHITE BLOOD COUNT 11.7 10^3/uL (4.0-10.0)
[2018-05-11 07:18] LABS: ANION GAP 10 MEQ/L (8-16); BLOOD UREA NITROGEN 38 MG/DL (7-18); C REACTIVE PROTEIN QUANTITATIV 1.05 MG/DL (0.00-0.30); CALCIUM LEVEL 8.1 MG/DL (8.8-10.2); CARBON DIOXIDE LEVEL 27 MEQ/L (21-32); CHLORIDE LEVEL 106 MEQ/L (98-107); CREATININE FOR GFR 1.47 MG/DL (0.70-1.30); GLOMERULAR FILTRATION RATE 49.6 (>42); GLUCOSE, FASTING 104 MG/DL (70-100); MAGNESIUM LEVEL 2.2 MG/DL (1.8-2.4); POTASSIUM SERUM 3.9 MEQ/L (3.5-5.1); SODIUM LEVEL 143 MEQ/L (136-145)
[2018-05-11] MEDS: SENOKOT S TAB PO ×2 (09:12→20:52)
[2018-05-11] MEDS: CLOPIDOGREL 75 MG TAB PO (09:12)
[2018-05-11] MEDS: CARVedilol 12.5 MG TAB PO ×2 (09:14→20:53)
[2018-05-11] MEDS: TORSEMIDE 20 MG TAB PO ×2 (09:14→18:23)
[2018-05-11] MEDS: MAGNESIUM OXIDE 400 MG TAB (MAG-OX) PO ×2 (09:14→20:53)
[2018-05-11] MEDS: ASCORBIC ACID 250 MG TAB PO ×2 (09:14→20:52)
[2018-05-11] MEDS: ENTRESTO 97-103MG TABLET (SACUBITRIL/VALSARTAN) PO ×2 (09:14→20:53)
[2018-05-11] MEDS: PANTOPRAZOLE 40MG TAB (PROTONIX) PO (09:14)
[2018-05-11] MEDS: carBAMazepine XR 200 MG TAB PO ×2 (09:15→20:52)
[2018-05-11] MEDS: HumaLOG INSULIN (NovoLOG) PER UNIT SC ×4 (09:15→20:43)
[2018-05-11] MEDS: FERROUS SULFATE 325MG TAB PO ×2 (09:15→20:57)
[2018-05-11] MEDS: LACTOBACILLUS ACIDOPHILUS CAP (BACID) PO ×2 (09:15→18:23)
[2018-05-11] MEDS: lamoTRIgine 100MG TAB PO ×2 (09:15→20:52)
[2018-05-11] MEDS: CLORAZEPATE 3.75 MG TAB PO ×2 (09:15→20:58)
[2018-05-11] MEDS: NYSTATIN 100,000 UNITS/GM TOPICAL PWD 15 GM TOP ×2 (09:16→20:53)
[2018-05-11 12:05] LABS: BEDSIDE GLUCOSE 153 MG/DL (83-110)
[2018-05-11 17:03] LABS: BEDSIDE GLUCOSE 123 MG/DL (83-110)
[2018-05-11] MEDS: CALCIUM CARBONATE 500 MG CHEW U/D PO (18:24)
[2018-05-11 20:21] LABS: BEDSIDE GLUCOSE 140 MG/DL (83-110)
[2018-05-11] MEDS: TAMSULOSIN 0.4 MG CAP PO (20:52)
[2018-05-11] MEDS: ATORVASTATIN 20 MG TAB PO (20:53)
[2018-05-11] MEDS: SERTRALINE HCL 50 MG TAB PO (20:53)
[2018-05-12 07:58] LABS: BEDSIDE GLUCOSE 157 MG/DL (83-110)
[2018-05-12 08:20] LABS: BASO # 0.1 10^3/uL (0.0-0.2); BASO % 0.3 % (0.0-1.0); EOS # 0.5 10^3/uL (0.0-0.50); EOS % 3.4 % (0.0-3.0); HEMATOCRIT 29.1 % (42.0-52.0); HEMOGLOBIN 9.5 g/dl (13.5-17.5); IMMATURE GRANULOCYTE % 0.3 % (0-3.0); LYMPH # 0.9 10^3/uL (1.5-4.5); LYMPH % 6.3 % (24.0-44.0); MEAN CORPUSCULAR HEMOGLOBIN 30.9 pg (27.0-33.0); MEAN CORPUSCULAR HGB CONC 32.6 g/dl (32.0-36.5); MEAN CORPUSCULAR VOLUME 94.8 fl (80.0-96.0); MONO % 7.1 % (0.0-5.0); NEUTROPHILS % 82.6 % (36.0-66.0); PLATELET COUNT, AUTOMATED 484 10^3/uL (150-450); RED BLOOD COUNT 3.07 10^6/uL (4.30-6.10); RED CELL DISTRIBUTION WIDTH 14.5 % (11.5-14.5); WHITE BLOOD COUNT 14.5 10^3/uL (4.0-10.0)
[2018-05-12] MEDS: LACTOBACILLUS ACIDOPHILUS CAP (BACID) PO ×2 (08:22→17:20)
[2018-05-12] MEDS: lamoTRIgine 100MG TAB PO ×2 (08:22→21:57)
[2018-05-12] MEDS: HumaLOG INSULIN (NovoLOG) PER UNIT SC ×4 (08:22→21:00)
[2018-05-12] MEDS: CLORAZEPATE 3.75 MG TAB PO ×2 (08:23→21:57)
[2018-05-12] MEDS: ENTRESTO 97-103MG TABLET (SACUBITRIL/VALSARTAN) PO ×2 (08:23→21:00)
[2018-05-12] MEDS: SENOKOT S TAB PO ×2 (08:23→21:57)
[2018-05-12] MEDS: CLOPIDOGREL 75 MG TAB PO (08:23)
[2018-05-12] MEDS: FERROUS SULFATE 325MG TAB PO ×2 (08:23→21:57)
[2018-05-12] MEDS: MAGNESIUM OXIDE 400 MG TAB (MAG-OX) PO ×2 (08:24→21:57)
[2018-05-12] MEDS: PANTOPRAZOLE 40MG TAB (PROTONIX) PO (08:24)
[2018-05-12] MEDS: carBAMazepine XR 200 MG TAB PO ×2 (08:24→22:30)
[2018-05-12] MEDS: CARVedilol 12.5 MG TAB PO (08:24)
[2018-05-12] MEDS: TORSEMIDE 20 MG TAB PO ×2 (08:24→17:19)
[2018-05-12] MEDS: ASCORBIC ACID 250 MG TAB PO ×2 (08:24→21:57)
[2018-05-12] MEDS: NYSTATIN 100,000 UNITS/GM TOPICAL PWD 15 GM TOP ×2 (08:25→22:30)
[2018-05-12 08:47] LABS: ANION GAP 10 MEQ/L (8-16); BLOOD UREA NITROGEN 38 MG/DL (7-18); C REACTIVE PROTEIN QUANTITATIV 1.16 MG/DL (0.00-0.30); CALCIUM LEVEL 8.6 MG/DL (8.8-10.2); CARBON DIOXIDE LEVEL 27 MEQ/L (21-32); CHLORIDE LEVEL 103 MEQ/L (98-107); CREATININE FOR GFR 1.57 MG/DL (0.70-1.30); GLUCOSE, FASTING 162 MG/DL (70-100); MAGNESIUM LEVEL 2.1 MG/DL (1.8-2.4); POTASSIUM SERUM 4.1 MEQ/L (3.5-5.1); SODIUM LEVEL 140 MEQ/L (136-145)
[2018-05-12 11:56] LABS: BEDSIDE GLUCOSE 88 MG/DL (83-110)
[2018-05-12 14:14] LABS: APPEARANCE, URINE CLOUDY (CLEAR); BACTERIA, URINE AUTO 2+ (NEGATIVE); BILIRUBIN, URINE AUTO NEGATIVE (NEGATIVE); BLOOD, URINE BLOOD 1+ (NEGATIVE); COLOR, URINE YELLOW (YELLOW); GLUCOSE, URINE (UA) AUTO NEGATIVE (NEGATIVE); KETONE, URINE AUTO NEGATIVE (NEGATIVE); LEUKOCYTE ESTERASE, URINE AUTO 3+ (NEGATIVE); MUCUS, URINE SMALL (NEGATIVE); NITRITE, URINE AUTO NEGATIVE (NEGATIVE); PROTEIN, URINE AUTO 1+ mg/dL (NEGATIVE); RBC, URINE AUTO 35 /HPF (0-3); SPECIFIC GRAVITY URINE AUTO 1.011 (1.002-1.035); SQUAMOUS EPITHELIAL CELL UR AU 0 /HPF (0-6); UROBILINOGEN, URINE AUTO 0.2 mg/dL (0.0-2.0); WBC, URINE AUTO TNTC /HPF (0-3)
[2018-05-12] MEDS: ACETAMINOPHEN TAB 650MG DOSE (2X325MG) PO (14:42)
[2018-05-12] MEDS: QUEtiapine FUMARATE 12.5 MG HALF-TAB PO (14:42)
[2018-05-12] MEDS: ALBUTEROL 90 MCG/ACT 8GM HFA INHALER INH (14:46)
[2018-05-12 17:14] LABS: BEDSIDE GLUCOSE 127 MG/DL (83-110)
[2018-05-12] MEDS: risperiDONE 0.25 MG TAB PO (17:19)
[2018-05-12 19:33] LABS: BASO # 0.1 10^3/uL (0.0-0.2); BASO % 0.5 % (0.0-1.0); EOS # 0.6 10^3/uL (0.0-0.50); EOS % 3.8 % (0.0-3.0); HEMATOCRIT 32.5 % (42.0-52.0); HEMOGLOBIN 10.3 g/dl (13.5-17.5); IMMATURE GRANULOCYTE % 0.5 % (0-3.0); LYMPH # 1.4 10^3/uL (1.5-4.5); LYMPH % 9.4 % (24.0-44.0); MEAN CORPUSCULAR HEMOGLOBIN 30.4 pg (27.0-33.0); MEAN CORPUSCULAR HGB CONC 31.7 g/dl (32.0-36.5); MEAN CORPUSCULAR VOLUME 95.9 fl (80.0-96.0); MONO % 6.6 % (0.0-5.0); NEUTROPHILS # 11.6 10^3/uL (1.8-7.7); NEUTROPHILS % 79.2 % (36.0-66.0); PLATELET COUNT, AUTOMATED 494 10^3/uL (150-450); RED BLOOD COUNT 3.39 10^6/uL (4.30-6.10); RED CELL DISTRIBUTION WIDTH 14.5 % (11.5-14.5); WHITE BLOOD COUNT 14.7 10^3/uL (4.0-10.0)
[2018-05-12 20:09] LABS: LACTIC ACID SEPSIS PROTOCOL 2.5 MMOL/L (0.4-2.0)
[2018-05-12 20:13] LABS: ALBUMIN/GLOBULIN RATIO 0.94 (1.00-1.93); ALKALINE PHOSPHATASE 92 U/L (45-117); ALT/SGPT 29 U/L (12-78); ANION GAP 13 MEQ/L (8-16); AST/SGOT 20 U/L (7-37); BILIRUBIN,TOTAL 0.5 MG/DL (0.2-1.0); BLOOD UREA NITROGEN 36 MG/DL (7-18); C REACTIVE PROTEIN QUANTITATIV 1.17 MG/DL (0.00-0.30); CALCIUM LEVEL 8.1 MG/DL (8.8-10.2); CARBON DIOXIDE LEVEL 23 MEQ/L (21-32); CHLORIDE LEVEL 106 MEQ/L (98-107); CREATININE FOR GFR 1.72 MG/DL (0.70-1.30); GLOMERULAR FILTRATION RATE 41.4 (>42); GLUCOSE, FASTING 130 MG/DL (70-100); MAGNESIUM LEVEL 2.1 MG/DL (1.8-2.4); POTASSIUM SERUM 4.4 MEQ/L (3.5-5.1); SODIUM LEVEL 142 MEQ/L (136-145); TOTAL PROTEIN 6.2 GM/DL (6.4-8.2)
[2018-05-12] MEDS: SODIUM CHLORIDE 0.9% 1000 ML IV (20:30)
[2018-05-12] MEDS: CARVedilol 6.25 MG TAB PO (21:00)
[2018-05-12 21:21] LABS: BEDSIDE GLUCOSE 121 MG/DL (83-110)
[2018-05-12] MEDS: SERTRALINE HCL 50 MG TAB PO (21:57)
[2018-05-12] MEDS: ATORVASTATIN 20 MG TAB PO (21:57)
[2018-05-12] MEDS: TAMSULOSIN 0.4 MG CAP PO (21:57)
[2018-05-13 06:21] LABS: BASO # 0.1 10^3/uL (0.0-0.2); BASO % 0.4 % (0.0-1.0); EOS # 0.5 10^3/uL (0.0-0.50); EOS % 3.5 % (0.0-3.0); HEMATOCRIT 27.3 % (42.0-52.0); HEMOGLOBIN 8.9 g/dl (13.5-17.5); IMMATURE GRANULOCYTE % 0.4 % (0-3.0); LYMPH # 0.9 10^3/uL (1.5-4.5); LYMPH % 7.2 % (24.0-44.0); MEAN CORPUSCULAR HEMOGLOBIN 30.5 pg (27.0-33.0); MEAN CORPUSCULAR HGB CONC 32.6 g/dl (32.0-36.5); MEAN CORPUSCULAR VOLUME 93.5 fl (80.0-96.0); MONO % 7.4 % (0.0-5.0); NEUTROPHILS # 10.4 10^3/uL (1.8-7.7); NEUTROPHILS % 81.1 % (36.0-66.0); PLATELET COUNT, AUTOMATED 408 10^3/uL (150-450); RED BLOOD COUNT 2.92 10^6/uL (4.30-6.10); RED CELL DISTRIBUTION WIDTH 14.3 % (11.5-14.5); WHITE BLOOD COUNT 12.8 10^3/uL (4.0-10.0)
[2018-05-13 06:39] LABS: ANION GAP 11 MEQ/L (8-16); BLOOD UREA NITROGEN 38 MG/DL (7-18); CALCIUM LEVEL 8.1 MG/DL (8.8-10.2); CARBON DIOXIDE LEVEL 24 MEQ/L (21-32); CHLORIDE LEVEL 106 MEQ/L (98-107); CREATININE FOR GFR 1.51 MG/DL (0.70-1.30); GLOMERULAR FILTRATION RATE 48.1 (>42); GLUCOSE, FASTING 109 MG/DL (70-100); MAGNESIUM LEVEL 2.1 MG/DL (1.8-2.4); SODIUM LEVEL 141 MEQ/L (136-145)
[2018-05-13 06:43] LABS: LACTIC ACID SEPSIS PROTOCOL 1.1 MMOL/L (0.4-2.0)
[2018-05-13 08:33] LABS: C REACTIVE PROTEIN QUANTITATIV 1.16 MG/DL (0.00-0.30)
[2018-05-13] MEDS: HumaLOG INSULIN (NovoLOG) PER UNIT SC ×4 (08:41→21:40)
[2018-05-13] MEDS: ASCORBIC ACID 250 MG TAB PO ×2 (09:00→21:23)
[2018-05-13] MEDS: CLORAZEPATE 3.75 MG TAB PO ×2 (09:00→21:21)
[2018-05-13] MEDS: CARVedilol 3.125 MG TAB PO ×2 (09:00→21:23)
[2018-05-13] MEDS: ENTRESTO 97-103MG TABLET (SACUBITRIL/VALSARTAN) PO (09:00)
[2018-05-13] MEDS: SENOKOT S TAB PO ×2 (09:00→21:22)
[2018-05-13] MEDS: PANTOPRAZOLE 40MG TAB (PROTONIX) PO (09:00)
[2018-05-13] MEDS: LACTOBACILLUS ACIDOPHILUS CAP (BACID) PO ×2 (09:00→18:00)
[2018-05-13] MEDS: carBAMazepine XR 200 MG TAB PO ×2 (09:00→21:23)
[2018-05-13] MEDS: lamoTRIgine 100MG TAB PO ×2 (09:00→21:21)
[2018-05-13] MEDS: risperiDONE 0.25 MG TAB PO (09:01)
[2018-05-13] MEDS: CLOPIDOGREL 75 MG TAB PO ×2 (09:01→12:03)
[2018-05-13] MEDS: FERROUS SULFATE 325MG TAB PO ×2 (09:01→21:22)
[2018-05-13] MEDS: MAGNESIUM OXIDE 400 MG TAB (MAG-OX) PO ×2 (09:01→21:22)
[2018-05-13] MEDS: NYSTATIN 100,000 UNITS/GM TOPICAL PWD 15 GM TOP ×2 (09:02→21:24)
[2018-05-13] MEDS: TORSEMIDE 20 MG TAB PO (12:03)
[2018-05-13 12:07] LABS: BEDSIDE GLUCOSE 156 MG/DL (83-110)
[2018-05-13] MEDS: ALBUTEROL 90 MCG/ACT 8GM HFA INHALER INH (15:37)
[2018-05-13] MEDS: TORSEMIDE 10 MG TABLET PO (17:00)
[2018-05-13 17:29] LABS: BEDSIDE GLUCOSE 75 MG/DL (83-110)
[2018-05-13] MEDS: ATORVASTATIN 20 MG TAB PO (21:21)
[2018-05-13] MEDS: CARVedilol 12.5 MG TAB PO (21:22)
[2018-05-13] MEDS: ENTRESTO 24-26MG TABLET (SACUBITRIL/VALSARTAN) PO (21:22)
[2018-05-13] MEDS: SERTRALINE HCL 50 MG TAB PO (21:22)
[2018-05-13] MEDS: TAMSULOSIN 0.4 MG CAP PO (21:23)
[2018-05-14 01:34] LABS: BEDSIDE GLUCOSE 140 MG/DL (83-110)
[2018-05-14] MEDS: ALBUTEROL 90 MCG/ACT 8GM HFA INHALER INH ×3 (01:58→21:12)
[2018-05-14 06:18] LABS: BASO % 0.4 % (0.0-1.0); EOS # 0.4 10^3/uL (0.0-0.50); EOS % 4.1 % (0.0-3.0); HEMATOCRIT 29.1 % (42.0-52.0); HEMOGLOBIN 9.3 g/dl (13.5-17.5); IMMATURE GRANULOCYTE % 0.5 % (0-3.0); LYMPH # 0.9 10^3/uL (1.5-4.5); LYMPH % 8.7 % (24.0-44.0); MEAN CORPUSCULAR VOLUME 93.9 fl (80.0-96.0); MONO # 0.9 10^3/uL (0.0-0.8); MONO % 8.3 % (0.0-5.0); NEUTROPHILS # 8.2 10^3/uL (1.8-7.7); PLATELET COUNT, AUTOMATED 407 10^3/uL (150-450); RED CELL DISTRIBUTION WIDTH 14.4 % (11.5-14.5); WHITE BLOOD COUNT 10.6 10^3/uL (4.0-10.0)
[2018-05-14 06:39] LABS: ANION GAP 11 MEQ/L (8-16); BLOOD UREA NITROGEN 35 MG/DL (7-18); C REACTIVE PROTEIN QUANTITATIV 1.22 MG/DL (0.00-0.30); CALCIUM LEVEL 8.1 MG/DL (8.8-10.2); CARBON DIOXIDE LEVEL 24 MEQ/L (21-32); CHLORIDE LEVEL 109 MEQ/L (98-107); CREATININE FOR GFR 1.47 MG/DL (0.70-1.30); GLOMERULAR FILTRATION RATE 49.6 (>42); GLUCOSE, FASTING 118 MG/DL (70-100); MAGNESIUM LEVEL 2.2 MG/DL (1.8-2.4); POTASSIUM SERUM 3.7 MEQ/L (3.5-5.1); SODIUM LEVEL 144 MEQ/L (136-145)
[2018-05-14] MEDS: HumaLOG INSULIN (NovoLOG) PER UNIT SC ×4 (07:30→21:00)
[2018-05-14] MEDS: ENTRESTO 24-26MG TABLET (SACUBITRIL/VALSARTAN) PO ×3 (09:57→22:25)
[2018-05-14] MEDS: CLORAZEPATE 3.75 MG TAB PO ×2 (09:57→22:27)
[2018-05-14] MEDS: lamoTRIgine 100MG TAB PO ×2 (09:58→22:26)
[2018-05-14] MEDS: SENOKOT S TAB PO ×2 (09:58→22:26)
[2018-05-14] MEDS: FERROUS SULFATE 325MG TAB PO ×2 (09:58→22:25)
[2018-05-14] MEDS: MAGNESIUM OXIDE 400 MG TAB (MAG-OX) PO ×2 (09:58→22:26)
[2018-05-14] MEDS: LACTOBACILLUS ACIDOPHILUS CAP (BACID) PO ×2 (09:58→17:37)
[2018-05-14] MEDS: CLOPIDOGREL 75 MG TAB PO (09:58)
[2018-05-14] MEDS: carBAMazepine XR 200 MG TAB PO ×2 (09:59→22:27)
[2018-05-14] MEDS: CARVedilol 3.125 MG TAB PO (09:59)
[2018-05-14] MEDS: ASCORBIC ACID 250 MG TAB PO ×2 (09:59→22:27)
[2018-05-14] MEDS: risperiDONE 0.25 MG TAB PO (09:59)
[2018-05-14] MEDS: PANTOPRAZOLE 40MG TAB (PROTONIX) PO (09:59)
[2018-05-14] MEDS: NYSTATIN 100,000 UNITS/GM TOPICAL PWD 15 GM TOP ×2 (10:00→22:28)
[2018-05-14 12:08] LABS: BEDSIDE GLUCOSE 189 MG/DL (83-110)
[2018-05-14 17:04] LABS: BEDSIDE GLUCOSE 89 MG/DL (83-110)
[2018-05-14 22:24] LABS: BEDSIDE GLUCOSE 156 MG/DL (83-110)
[2018-05-14] MEDS: CARVedilol 6.25 MG TAB PO (22:25)
[2018-05-14] MEDS: TAMSULOSIN 0.4 MG CAP PO (22:26)
[2018-05-14] MEDS: ATORVASTATIN 20 MG TAB PO (22:26)
[2018-05-14] MEDS: SERTRALINE HCL 50 MG TAB PO (22:27)
[2018-05-15] MEDS: HumaLOG INSULIN (NovoLOG) PER UNIT SC ×4 (07:30→20:36)
[2018-05-15 07:43] LABS: BEDSIDE GLUCOSE 146 MG/DL (83-110)
[2018-05-15 08:08] LABS: BASO % 0.3 % (0.0-1.0); EOS # 0.4 10^3/uL (0.0-0.50); EOS % 3.2 % (0.0-3.0); HEMATOCRIT 30.7 % (42.0-52.0); HEMOGLOBIN 9.8 g/dl (13.5-17.5); IMMATURE GRANULOCYTE % 0.5 % (0-3.0); LYMPH # 0.8 10^3/uL (1.5-4.5); LYMPH % 6.2 % (24.0-44.0); MEAN CORPUSCULAR HEMOGLOBIN 30.3 pg (27.0-33.0); MEAN CORPUSCULAR HGB CONC 31.9 g/dl (32.0-36.5); MONO # 0.9 10^3/uL (0.0-0.8); MONO % 7.1 % (0.0-5.0); NEUTROPHILS % 82.7 % (36.0-66.0); PLATELET COUNT, AUTOMATED 534 10^3/uL (150-450); RED BLOOD COUNT 3.23 10^6/uL (4.30-6.10); RED CELL DISTRIBUTION WIDTH 14.6 % (11.5-14.5); WHITE BLOOD COUNT 13.3 10^3/uL (4.0-10.0)
[2018-05-15 08:32] LABS: C REACTIVE PROTEIN QUANTITATIV 1.19 MG/DL (0.00-0.30)
[2018-05-15] MEDS: ALBUTEROL 90 MCG/ACT 8GM HFA INHALER INH ×3 (08:32→20:49)
[2018-05-15 08:35] LABS: ALBUMIN 3.2 GM/DL (3.2-5.2); ALBUMIN/GLOBULIN RATIO 0.94 (1.00-1.93); ALKALINE PHOSPHATASE 98 U/L (45-117); ALT/SGPT 32 U/L (12-78); ANION GAP 9 MEQ/L (8-16); AST/SGOT 21 U/L (7-37); BILIRUBIN,TOTAL 0.5 MG/DL (0.2-1.0); BLOOD UREA NITROGEN 33 MG/DL (7-18); CALCIUM LEVEL 8.4 MG/DL (8.8-10.2); CARBON DIOXIDE LEVEL 27 MEQ/L (21-32); CHLORIDE LEVEL 107 MEQ/L (98-107); CREATININE FOR GFR 1.47 MG/DL (0.70-1.30); GLOMERULAR FILTRATION RATE 49.6 (>42); GLUCOSE, FASTING 139 MG/DL (70-100); MAGNESIUM LEVEL 2.5 MG/DL (1.8-2.4); POTASSIUM SERUM 4.1 MEQ/L (3.5-5.1); SODIUM LEVEL 143 MEQ/L (136-145); TOTAL PROTEIN 6.6 GM/DL (6.4-8.2)
[2018-05-15] MEDS ORDERED: DIGOXIN 0.0625MG PER 1/2TABLET PO (09:00)
[2018-05-15] MEDS: ENTRESTO 24-26MG TABLET (SACUBITRIL/VALSARTAN) PO ×2 (09:00→20:34)
[2018-05-15] MEDS: CLORAZEPATE 3.75 MG TAB PO ×2 (09:12→20:34)
[2018-05-15] MEDS: lamoTRIgine 100MG TAB PO ×2 (09:13→20:36)
[2018-05-15] MEDS: LACTOBACILLUS ACIDOPHILUS CAP (BACID) PO ×2 (09:13→17:30)
[2018-05-15] MEDS: carBAMazepine XR 200 MG TAB PO ×2 (09:13→20:35)
[2018-05-15] MEDS: ASCORBIC ACID 250 MG TAB PO ×2 (09:14→20:36)
[2018-05-15] MEDS: MAGNESIUM OXIDE 400 MG TAB (MAG-OX) PO ×2 (09:14→20:34)
[2018-05-15] MEDS: CLOPIDOGREL 75 MG TAB PO (09:14)
[2018-05-15] MEDS: FERROUS SULFATE 325MG TAB PO ×2 (09:14→20:34)
[2018-05-15] MEDS: SENOKOT S TAB PO ×2 (09:14→20:36)
[2018-05-15] MEDS: PANTOPRAZOLE 40MG TAB (PROTONIX) PO (09:15)
[2018-05-15] MEDS: risperiDONE 0.25 MG TAB PO (09:15)
[2018-05-15] MEDS: NYSTATIN 100,000 UNITS/GM TOPICAL PWD 15 GM TOP ×2 (09:15→20:37)
[2018-05-15] MEDS: CARVedilol 6.25 MG TAB PO ×2 (09:15→20:35)
[2018-05-15] MEDS: PENTOSAN POLYSULFATE SODIUM 100 MG CAP (ELMIRON) PO ×3 (10:00→20:34)
[2018-05-15 12:03] LABS: BEDSIDE GLUCOSE 134 MG/DL (83-110)
[2018-05-15] MEDS: FUROSEMIDE 40 MG/4 ML VIAL (J1940) IV (13:11)
[2018-05-15] MEDS: DIGOXIN 0.0625MG PER 1/2TABLET PO (13:20)
[2018-05-15 17:09] LABS: BEDSIDE GLUCOSE 173 MG/DL (83-110)
[2018-05-15 20:11] LABS: BEDSIDE GLUCOSE 171 MG/DL (83-110)
[2018-05-15] MEDS: TAMSULOSIN 0.4 MG CAP PO (20:35)
[2018-05-15] MEDS: SERTRALINE HCL 50 MG TAB PO (20:36)
[2018-05-15] MEDS: ATORVASTATIN 20 MG TAB PO (20:36)
[2018-05-16 05:09] LABS: BASO # 0.1 10^3/uL (0.0-0.2); BASO % 0.4 % (0.0-1.0); EOS # 0.4 10^3/uL (0.0-0.50); EOS % 3.3 % (0.0-3.0); HEMATOCRIT 28.5 % (42.0-52.0); HEMOGLOBIN 9.1 g/dl (13.5-17.5); IMMATURE GRANULOCYTE % 0.3 % (0-3.0); LYMPH # 1.1 10^3/uL (1.5-4.5); LYMPH % 8.9 % (24.0-44.0); MEAN CORPUSCULAR HEMOGLOBIN 30.3 pg (27.0-33.0); MEAN CORPUSCULAR HGB CONC 31.9 g/dl (32.0-36.5); MONO # 0.9 10^3/uL (0.0-0.8); MONO % 7.3 % (0.0-5.0); NEUTROPHILS # 9.6 10^3/uL (1.8-7.7); NEUTROPHILS % 79.8 % (36.0-66.0); PLATELET COUNT, AUTOMATED 457 10^3/uL (150-450); RED CELL DISTRIBUTION WIDTH 14.5 % (11.5-14.5)
[2018-05-16 05:28] LABS: ALBUMIN 2.7 GM/DL (3.2-5.2); ALKALINE PHOSPHATASE 85 U/L (45-117); ALT/SGPT 24 U/L (12-78); ANION GAP 11 MEQ/L (8-16); AST/SGOT 15 U/L (7-37); BILIRUBIN,TOTAL 0.5 MG/DL (0.2-1.0); BLOOD UREA NITROGEN 32 MG/DL (7-18); C REACTIVE PROTEIN QUANTITATIV 1.28 MG/DL (0.00-0.30); CALCIUM LEVEL 8.2 MG/DL (8.8-10.2); CARBON DIOXIDE LEVEL 27 MEQ/L (21-32); CHLORIDE LEVEL 108 MEQ/L (98-107); CREATININE FOR GFR 1.36 MG/DL (0.70-1.30); GLOMERULAR FILTRATION RATE 54.2 (>42); GLUCOSE, FASTING 126 MG/DL (70-100); MAGNESIUM LEVEL 2.4 MG/DL (1.8-2.4); SODIUM LEVEL 146 MEQ/L (136-145); TOTAL PROTEIN 5.7 GM/DL (6.4-8.2)
[2018-05-16] MEDS: ALBUTEROL 90 MCG/ACT 8GM HFA INHALER INH ×4 (06:18→20:13)
[2018-05-16] MEDS: CLORAZEPATE 3.75 MG TAB PO ×2 (08:35→20:08)
[2018-05-16] MEDS: LACTOBACILLUS ACIDOPHILUS CAP (BACID) PO ×2 (08:36→17:10)
[2018-05-16] MEDS: carBAMazepine XR 200 MG TAB PO ×2 (08:36→20:09)
[2018-05-16] MEDS: DIGOXIN 0.0625MG PER 1/2TABLET PO (08:36)
[2018-05-16] MEDS: HumaLOG INSULIN (NovoLOG) PER UNIT SC ×4 (08:37→20:10)
[2018-05-16] MEDS: FERROUS SULFATE 325MG TAB PO ×2 (08:37→20:08)
[2018-05-16] MEDS: lamoTRIgine 100MG TAB PO ×2 (08:37→20:10)
[2018-05-16] MEDS: SENOKOT S TAB PO ×2 (08:38→20:08)
[2018-05-16] MEDS: CARVedilol 6.25 MG TAB PO ×2 (08:38→20:09)
[2018-05-16] MEDS: ASCORBIC ACID 250 MG TAB PO ×2 (08:39→20:09)
[2018-05-16] MEDS: MAGNESIUM OXIDE 400 MG TAB (MAG-OX) PO ×2 (08:39→20:08)
[2018-05-16] MEDS: CLOPIDOGREL 75 MG TAB PO (08:39)
[2018-05-16] MEDS: NYSTATIN 100,000 UNITS/GM TOPICAL PWD 15 GM TOP ×2 (08:40→20:12)
[2018-05-16] MEDS: ENTRESTO 24-26MG TABLET (SACUBITRIL/VALSARTAN) PO ×2 (08:42→20:10)
[2018-05-16] MEDS: risperiDONE 0.25 MG TAB PO (08:42)
[2018-05-16] MEDS: PANTOPRAZOLE 40MG TAB (PROTONIX) PO (08:42)
[2018-05-16] MEDS: PENTOSAN POLYSULFATE SODIUM 100 MG CAP (ELMIRON) PO ×3 (08:42→20:09)
[2018-05-16 11:44] LABS: BEDSIDE GLUCOSE 119 MG/DL (83-110)
[2018-05-16] MEDS: FUROSEMIDE 40 MG/4 ML VIAL (J1940) IV ×2 (12:48)
[2018-05-16 13:01] LABS: CPK CREATINE PHOSPHOKINASE 76 U/L (39-308); TROPONIN I < 0.02 NG/ML (< 0.10)
[2018-05-16 13:09] LABS: CK-MB VALUE MASS 1.5 NG/ML (<3.6); MB/CK RELATIVE INDEX 1.97 (< OR =4)
[2018-05-16 17:00] LABS: BEDSIDE GLUCOSE 128 MG/DL (83-110)
[2018-05-16] MEDS ORDERED: SLF 3 ML SYR IV (18:00)
[2018-05-16 18:43] LABS: CK-MB VALUE MASS 1.1 NG/ML (<3.6); CPK CREATINE PHOSPHOKINASE 75 U/L (39-308); MB/CK RELATIVE INDEX 1.46 (< OR =4); TROPONIN I 0.02 NG/ML (< 0.10)
[2018-05-16 19:57] LABS: BEDSIDE GLUCOSE 129 MG/DL (83-110)
[2018-05-16] MEDS: TAMSULOSIN 0.4 MG CAP PO (20:08)
[2018-05-16] MEDS: ATORVASTATIN 20 MG TAB PO (20:08)
[2018-05-16] MEDS: SERTRALINE HCL 50 MG TAB PO (20:10)
[2018-05-16] MEDS: SLF 3 ML SYR IV (20:12)
[2018-05-17] MEDS: ALBUTEROL 90 MCG/ACT 8GM HFA INHALER INH ×5 (00:49→20:28)
[2018-05-17] MEDS: SLF 3 ML SYR IV ×3 (05:28→21:35)
[2018-05-17] MEDS: ACETAMINOPHEN TAB 650MG DOSE (2X325MG) PO ×2 (07:01→16:25)
[2018-05-17 07:26] LABS: BEDSIDE GLUCOSE 121 MG/DL (83-110)
[2018-05-17] MEDS: FUROSEMIDE 40 MG/4 ML VIAL (J1940) IV ×3 (08:48→17:08)
[2018-05-17] MEDS: HumaLOG INSULIN (NovoLOG) PER UNIT SC ×4 (08:49→21:00)
[2018-05-17] MEDS: PANTOPRAZOLE 40MG TAB (PROTONIX) PO (08:49)
[2018-05-17] MEDS: MAGNESIUM OXIDE 400 MG TAB (MAG-OX) PO ×2 (08:50→21:33)
[2018-05-17] MEDS: risperiDONE 0.25 MG TAB PO (08:50)
[2018-05-17] MEDS: FERROUS SULFATE 325MG TAB PO ×2 (08:50→21:34)
[2018-05-17] MEDS: ASCORBIC ACID 250 MG TAB PO ×2 (08:50→21:25)
[2018-05-17] MEDS: DIGOXIN 0.0625MG PER 1/2TABLET PO (08:51)
[2018-05-17] MEDS: CLOPIDOGREL 75 MG TAB PO (08:51)
[2018-05-17] MEDS: CLORAZEPATE 3.75 MG TAB PO ×2 (08:52→21:24)
[2018-05-17] MEDS: PENTOSAN POLYSULFATE SODIUM 100 MG CAP (ELMIRON) PO ×3 (08:54→21:24)
[2018-05-17] MEDS: SENOKOT S TAB PO ×2 (08:54→21:25)
[2018-05-17] MEDS: carBAMazepine XR 200 MG TAB PO ×2 (08:54→21:24)
[2018-05-17] MEDS: LACTOBACILLUS ACIDOPHILUS CAP (BACID) PO ×2 (08:54→17:09)
[2018-05-17] MEDS: lamoTRIgine 100MG TAB PO ×2 (08:55→21:32)
[2018-05-17] MEDS: CARVedilol 6.25 MG TAB PO ×2 (08:55→21:32)
[2018-05-17] MEDS: ENTRESTO 24-26MG TABLET (SACUBITRIL/VALSARTAN) PO ×3 (08:55→21:25)
[2018-05-17] MEDS: NYSTATIN 100,000 UNITS/GM TOPICAL PWD 15 GM TOP ×2 (09:00→21:35)
[2018-05-17 12:00] LABS: BEDSIDE GLUCOSE 92 MG/DL (83-110)
[2018-05-17] MEDS: LIDOCAINE 2% JELLY 30 ML TOP (14:12)
[2018-05-17 16:35] LABS: BEDSIDE GLUCOSE 236 MG/DL (83-110)
[2018-05-17 21:17] LABS: BEDSIDE GLUCOSE 82 MG/DL (83-110)
[2018-05-17] MEDS: ATORVASTATIN 20 MG TAB PO (21:33)
[2018-05-17] MEDS: SERTRALINE HCL 50 MG TAB PO (21:33)
[2018-05-17] MEDS: TAMSULOSIN 0.4 MG CAP PO (21:33)
[2018-05-18] MEDS: ALBUTEROL 90 MCG/ACT 8GM HFA INHALER INH ×4 (01:12→20:25)
[2018-05-18] MEDS: SLF 3 ML SYR IV ×3 (06:00→21:44)
[2018-05-18] MEDS: FUROSEMIDE 40 MG/4 ML VIAL (J1940) IV ×2 (08:32→17:09)
[2018-05-18] MEDS: HumaLOG INSULIN (NovoLOG) PER UNIT SC ×4 (08:32→21:44)
[2018-05-18] MEDS: risperiDONE 0.25 MG TAB PO (08:33)
[2018-05-18] MEDS: PENTOSAN POLYSULFATE SODIUM 100 MG CAP (ELMIRON) PO ×3 (08:33→21:42)
[2018-05-18] MEDS: FERROUS SULFATE 325MG TAB PO ×2 (08:34→21:42)
[2018-05-18] MEDS: CLORAZEPATE 3.75 MG TAB PO ×2 (08:34→21:42)
[2018-05-18] MEDS: MAGNESIUM OXIDE 400 MG TAB (MAG-OX) PO ×2 (08:34→21:43)
[2018-05-18] MEDS: DIGOXIN 0.0625MG PER 1/2TABLET PO (08:34)
[2018-05-18] MEDS: ENTRESTO 24-26MG TABLET (SACUBITRIL/VALSARTAN) PO ×2 (08:35→21:45)
[2018-05-18] MEDS: SENOKOT S TAB PO ×2 (08:35→21:42)
[2018-05-18] MEDS: lamoTRIgine 100MG TAB PO ×2 (08:35→21:42)
[2018-05-18] MEDS: carBAMazepine XR 200 MG TAB PO ×2 (08:35→21:43)
[2018-05-18] MEDS: LACTOBACILLUS ACIDOPHILUS CAP (BACID) PO ×2 (08:35→17:08)
[2018-05-18] MEDS: ASCORBIC ACID 250 MG TAB PO ×2 (08:36→21:42)
[2018-05-18] MEDS: CARVedilol 6.25 MG TAB PO ×2 (08:36→21:46)
[2018-05-18] MEDS: CLOPIDOGREL 75 MG TAB PO (08:36)
[2018-05-18] MEDS: PANTOPRAZOLE 40MG TAB (PROTONIX) PO (08:36)
[2018-05-18] MEDS: NYSTATIN 100,000 UNITS/GM TOPICAL PWD 15 GM TOP ×2 (08:37→21:43)
[2018-05-18 12:03] LABS: BEDSIDE GLUCOSE 134 MG/DL (83-110)
[2018-05-18 12:03] LABS: BEDSIDE GLUCOSE 133 MG/DL (83-110)
[2018-05-18 16:50] LABS: BEDSIDE GLUCOSE 137 MG/DL (83-110)
[2018-05-18 20:17] LABS: BEDSIDE GLUCOSE 139 MG/DL (83-110)
[2018-05-18] MEDS: ATORVASTATIN 20 MG TAB PO (21:41)
[2018-05-18] MEDS: TAMSULOSIN 0.4 MG CAP PO (21:42)
[2018-05-18] MEDS: SERTRALINE HCL 50 MG TAB PO (21:42)
[2018-05-19] MEDS: ALBUTEROL 90 MCG/ACT 8GM HFA INHALER INH ×5 (00:19→21:43)
[2018-05-19] MEDS: ACETAMINOPHEN TAB 650MG DOSE (2X325MG) PO (02:18)
[2018-05-19 05:33] LABS: BASO % 0.3 % (0.0-1.0); EOS # 0.4 10^3/uL (0.0-0.50); EOS % 2.6 % (0.0-3.0); HEMATOCRIT 29.3 % (42.0-52.0); HEMOGLOBIN 9.5 g/dl (13.5-17.5); IMMATURE GRANULOCYTE % 0.5 % (0-3.0); LYMPH # 0.8 10^3/uL (1.5-4.5); LYMPH % 5.4 % (24.0-44.0); MEAN CORPUSCULAR HEMOGLOBIN 30.6 pg (27.0-33.0); MEAN CORPUSCULAR HGB CONC 32.4 g/dl (32.0-36.5); MEAN CORPUSCULAR VOLUME 94.5 fl (80.0-96.0); MONO # 1.1 10^3/uL (0.0-0.8); MONO % 7.4 % (0.0-5.0); NEUTROPHILS # 12.4 10^3/uL (1.8-7.7); NEUTROPHILS % 83.8 % (36.0-66.0); PLATELET COUNT, AUTOMATED 456 10^3/uL (150-450); RED CELL DISTRIBUTION WIDTH 14.6 % (11.5-14.5); WHITE BLOOD COUNT 14.7 10^3/uL (4.0-10.0)
[2018-05-19 05:51] LABS: ALBUMIN 2.8 GM/DL (3.2-5.2); ALBUMIN/GLOBULIN RATIO 0.88 (1.00-1.93); ALKALINE PHOSPHATASE 92 U/L (45-117); ALT/SGPT 30 U/L (12-78); ANION GAP 12 MEQ/L (8-16); AST/SGOT 19 U/L (7-37); BILIRUBIN,TOTAL 0.5 MG/DL (0.2-1.0); BLOOD UREA NITROGEN 36 MG/DL (7-18); CARBON DIOXIDE LEVEL 25 MEQ/L (21-32); CHLORIDE LEVEL 106 MEQ/L (98-107); CREATININE FOR GFR 1.35 MG/DL (0.70-1.30); GLOMERULAR FILTRATION RATE 54.7 (>42); GLUCOSE, FASTING 121 MG/DL (70-100); MAGNESIUM LEVEL 2.1 MG/DL (1.8-2.4); POTASSIUM SERUM 3.5 MEQ/L (3.5-5.1); SODIUM LEVEL 143 MEQ/L (136-145)
[2018-05-19] MEDS: SLF 3 ML SYR IV ×3 (06:00→21:47)
[2018-05-19] MEDS: HumaLOG INSULIN (NovoLOG) PER UNIT SC ×4 (08:21→20:56)
[2018-05-19] MEDS: NYSTATIN 100,000 UNITS/GM TOPICAL PWD 15 GM TOP ×2 (08:21→21:47)
[2018-05-19] MEDS: ENTRESTO 24-26MG TABLET (SACUBITRIL/VALSARTAN) PO ×2 (08:22→21:45)
[2018-05-19] MEDS: CLORAZEPATE 3.75 MG TAB PO ×2 (08:22→21:46)
[2018-05-19] MEDS: FUROSEMIDE 40 MG/4 ML VIAL (J1940) IV ×2 (08:22→17:26)
[2018-05-19] MEDS: DIGOXIN 0.0625MG PER 1/2TABLET PO (08:22)
[2018-05-19] MEDS: ASCORBIC ACID 250 MG TAB PO ×2 (08:23→21:45)
[2018-05-19] MEDS: FERROUS SULFATE 325MG TAB PO ×2 (08:23→21:46)
[2018-05-19] MEDS: LACTOBACILLUS ACIDOPHILUS CAP (BACID) PO ×2 (08:23→17:24)
[2018-05-19] MEDS: lamoTRIgine 100MG TAB PO ×2 (08:23→21:46)
[2018-05-19] MEDS: CARVedilol 6.25 MG TAB PO ×2 (08:24→21:46)
[2018-05-19] MEDS: MAGNESIUM OXIDE 400 MG TAB (MAG-OX) PO ×2 (08:24→21:45)
[2018-05-19] MEDS: SENOKOT S TAB PO ×2 (08:25→21:46)
[2018-05-19] MEDS: carBAMazepine XR 200 MG TAB PO ×2 (08:25→21:45)
[2018-05-19] MEDS: CLOPIDOGREL 75 MG TAB PO (08:25)
[2018-05-19] MEDS: PENTOSAN POLYSULFATE SODIUM 100 MG CAP (ELMIRON) PO ×3 (08:34→21:44)
[2018-05-19] MEDS: risperiDONE 0.25 MG TAB PO (08:34)
[2018-05-19] MEDS: PANTOPRAZOLE 40MG TAB (PROTONIX) PO (08:34)
[2018-05-19 17:14] LABS: BEDSIDE GLUCOSE 154 MG/DL (83-110)
[2018-05-19 20:18] LABS: BEDSIDE GLUCOSE 73 MG/DL (83-110)
[2018-05-19 21:00] LABS: BEDSIDE GLUCOSE 95 MG/DL (83-110)
[2018-05-19] MEDS: ATORVASTATIN 20 MG TAB PO (21:46)
[2018-05-19] MEDS: TAMSULOSIN 0.4 MG CAP PO (21:46)
[2018-05-19] MEDS: SERTRALINE HCL 50 MG TAB PO (21:47)
[2018-05-20] MEDS: SLF 3 ML SYR IV ×3 (05:24→21:18)
[2018-05-20 07:09] LABS: ALBUMIN 2.9 GM/DL (3.2-5.2); ALBUMIN/GLOBULIN RATIO 0.94 (1.00-1.93); ALKALINE PHOSPHATASE 119 U/L (45-117); ALT/SGPT 42 U/L (12-78); ANION GAP 11 MEQ/L (8-16); AST/SGOT 42 U/L (7-37); BILIRUBIN,TOTAL 0.7 MG/DL (0.2-1.0); BLOOD UREA NITROGEN 40 MG/DL (7-18); CARBON DIOXIDE LEVEL 26 MEQ/L (21-32); CHLORIDE LEVEL 105 MEQ/L (98-107); CREATININE FOR GFR 1.53 MG/DL (0.70-1.30); GLOMERULAR FILTRATION RATE 47.3 (>42); GLUCOSE, FASTING 113 MG/DL (70-100); MAGNESIUM LEVEL 2.2 MG/DL (1.8-2.4); POTASSIUM SERUM 3.9 MEQ/L (3.5-5.1); SODIUM LEVEL 142 MEQ/L (136-145)
[2018-05-20 07:10] LABS: BASO # 0.1 10^3/uL (0.0-0.2); BASO % 0.5 % (0.0-1.0); EOS # 0.4 10^3/uL (0.0-0.50); HEMATOCRIT 29.4 % (42.0-52.0); HEMOGLOBIN 9.1 g/dl (13.5-17.5); IMMATURE GRANULOCYTE % 0.4 % (0-3.0); LYMPH # 0.7 10^3/uL (1.5-4.5); LYMPH % 4.8 % (24.0-44.0); MEAN CORPUSCULAR HEMOGLOBIN 29.8 pg (27.0-33.0); MEAN CORPUSCULAR VOLUME 96.4 fl (80.0-96.0); MONO # 1.2 10^3/uL (0.0-0.8); MONO % 8.3 % (0.0-5.0); NEUTROPHILS # 11.8 10^3/uL (1.8-7.7); PLATELET COUNT, AUTOMATED 481 10^3/uL (150-450); RED BLOOD COUNT 3.05 10^6/uL (4.30-6.10); RED CELL DISTRIBUTION WIDTH 14.6 % (11.5-14.5); WHITE BLOOD COUNT 14.2 10^3/uL (4.0-10.0)
[2018-05-20] MEDS: HumaLOG INSULIN (NovoLOG) PER UNIT SC ×4 (09:14→21:00)
[2018-05-20] MEDS: ASCORBIC ACID 250 MG TAB PO ×3 (09:15→21:16)
[2018-05-20] MEDS: LACTOBACILLUS ACIDOPHILUS CAP (BACID) PO ×3 (09:15→18:15)
[2018-05-20] MEDS: risperiDONE 0.25 MG TAB PO ×2 (09:15→10:30)
[2018-05-20] MEDS: FUROSEMIDE 40 MG/4 ML VIAL (J1940) IV (09:15)
[2018-05-20] MEDS: PENTOSAN POLYSULFATE SODIUM 100 MG CAP (ELMIRON) PO ×4 (09:15→21:14)
[2018-05-20] MEDS: lamoTRIgine 100MG TAB PO ×3 (09:15→21:16)
[2018-05-20] MEDS: FERROUS SULFATE 325MG TAB PO ×3 (09:16→21:15)
[2018-05-20] MEDS: DIGOXIN 0.0625MG PER 1/2TABLET PO ×2 (09:16→10:30)
[2018-05-20] MEDS: CLORAZEPATE 3.75 MG TAB PO ×3 (09:16→21:16)
[2018-05-20] MEDS: CARVedilol 6.25 MG TAB PO ×3 (09:17→21:15)
[2018-05-20] MEDS: CLOPIDOGREL 75 MG TAB PO ×2 (09:18→10:30)
[2018-05-20] MEDS: MAGNESIUM OXIDE 400 MG TAB (MAG-OX) PO ×3 (09:18→21:16)
[2018-05-20] MEDS: PANTOPRAZOLE 40MG TAB (PROTONIX) PO ×2 (09:18→10:30)
[2018-05-20] MEDS: SENOKOT S TAB PO ×3 (09:18→21:16)
[2018-05-20] MEDS: ENTRESTO 24-26MG TABLET (SACUBITRIL/VALSARTAN) PO ×2 (09:18→16:07)
[2018-05-20] MEDS: NYSTATIN 100,000 UNITS/GM TOPICAL PWD 15 GM TOP ×2 (09:19→21:17)
[2018-05-20] MEDS ORDERED: PILL CRUSHER/CUTTER 1 EACH XX (10:00)
[2018-05-20] MEDS: IPRATROPIUM 0.5MG/ALBUTEROL 2.5MG INH SOL UD 3ML (DUONEB)(J7620) NEB (10:13)
[2018-05-20 10:17] LABS: ABG BASE EXCESS -1.8 (-2.0-2.0); ABG HCO3 22.8 MEQ/L (22.0-26.0); ABG O2 SATURATION 92.8 % (95.0-99.0); ABG PARTIAL PRESSURE CO2 38.2 mmHg (35.0-45.0); ABG PARTIAL PRESSURE O2 72.5 mmHg (75.0-100.0); ABG STANDARD HCO3 22.9 MEQ/L (22.0-26.0); ABG pH (ARTERIAL) 7.394 UNITS (7.350-7.450)
[2018-05-20] MEDS ORDERED: RACEPINEPHrine 2.25 % UD INHA NEB (10:30)
[2018-05-20] MEDS: carBAMazepine XR 200 MG TAB PO ×2 (10:31→21:15)
[2018-05-20] MEDS ORDERED: RACEPINEPHrine 2.25 % UD INHA INH (10:45)
[2018-05-20 12:18] LABS: BEDSIDE GLUCOSE 135 MG/DL (83-110)
[2018-05-20] MEDS: FUROSEMIDE 100 MG/10 ML VIAL (J1940) IV ×2 (13:41→21:17)
[2018-05-20 16:44] LABS: BEDSIDE GLUCOSE 125 MG/DL (83-110)
[2018-05-20 20:38] LABS: BEDSIDE GLUCOSE 103 MG/DL (83-110)
[2018-05-20] MEDS: ACETAMINOPHEN TAB 650MG DOSE (2X325MG) PO (21:15)
[2018-05-20] MEDS: ATORVASTATIN 20 MG TAB PO (21:15)
[2018-05-20] MEDS: TAMSULOSIN 0.4 MG CAP PO (21:16)
[2018-05-20] MEDS: SERTRALINE HCL 50 MG TAB PO (21:16)
[2018-05-20] MEDS: ALBUTEROL 90 MCG/ACT 8GM HFA INHALER INH (23:46)
[2018-05-21] MEDS: ALBUTEROL 90 MCG/ACT 8GM HFA INHALER INH ×2 (04:23→11:02)
[2018-05-21] MEDS: SLF 3 ML SYR IV ×3 (05:12→21:08)
[2018-05-21 06:33] LABS: BASO # 0.1 10^3/uL (0.0-0.2); BASO % 0.5 % (0.0-1.0); EOS # 0.4 10^3/uL (0.0-0.50); EOS % 2.9 % (0.0-3.0); HEMATOCRIT 28.8 % (42.0-52.0); HEMOGLOBIN 9.3 g/dl (13.5-17.5); IMMATURE GRANULOCYTE % 0.6 % (0-3.0); LYMPH # 0.7 10^3/uL (1.5-4.5); LYMPH % 4.9 % (24.0-44.0); MEAN CORPUSCULAR HEMOGLOBIN 30.4 pg (27.0-33.0); MEAN CORPUSCULAR HGB CONC 32.3 g/dl (32.0-36.5); MEAN CORPUSCULAR VOLUME 94.1 fl (80.0-96.0); MONO % 7.2 % (0.0-5.0); NEUTROPHILS # 12.1 10^3/uL (1.8-7.7); NEUTROPHILS % 83.9 % (36.0-66.0); RED BLOOD COUNT 3.06 10^6/uL (4.30-6.10); RED CELL DISTRIBUTION WIDTH 14.6 % (11.5-14.5); WHITE BLOOD COUNT 14.4 10^3/uL (4.0-10.0)
[2018-05-21 06:34] LABS: PLATELET COUNT, AUTOMATED 388 10^3/uL (150-450); POS COUNT POS FLAG
[2018-05-21 06:49] LABS: ALBUMIN 2.6 GM/DL (3.2-5.2); ALBUMIN/GLOBULIN RATIO 0.76 (1.00-1.93); ALKALINE PHOSPHATASE 114 U/L (45-117); ALT/SGPT 48 U/L (12-78); ANION GAP 14 MEQ/L (8-16); AST/SGOT 66 U/L (7-37); BILIRUBIN,TOTAL 0.6 MG/DL (0.2-1.0); BLOOD UREA NITROGEN 43 MG/DL (7-18); CALCIUM LEVEL 7.9 MG/DL (8.8-10.2); CARBON DIOXIDE LEVEL 21 MEQ/L (21-32); CHLORIDE LEVEL 106 MEQ/L (98-107); CREATININE FOR GFR 1.46 MG/DL (0.70-1.30); GLUCOSE, FASTING 93 MG/DL (70-100); MAGNESIUM LEVEL 2.3 MG/DL (1.8-2.4); SODIUM LEVEL 141 MEQ/L (136-145)
[2018-05-21 06:50] LABS: POTASSIUM SERUM 5.2 MEQ/L (3.5-5.1)
[2018-05-21 08:06] LABS: ANION GAP 11 MEQ/L (8-16); BLOOD UREA NITROGEN 42 MG/DL (7-18); CALCIUM LEVEL 7.8 MG/DL (8.8-10.2); CARBON DIOXIDE LEVEL 26 MEQ/L (21-32); CHLORIDE LEVEL 106 MEQ/L (98-107); CREATININE FOR GFR 1.46 MG/DL (0.70-1.30); GLUCOSE, FASTING 104 MG/DL (70-100); POTASSIUM SERUM 4.1 MEQ/L (3.5-5.1); SODIUM LEVEL 143 MEQ/L (136-145)
[2018-05-21] MEDS: HumaLOG INSULIN (NovoLOG) PER UNIT SC ×4 (08:43→20:21)
[2018-05-21] MEDS: FERROUS SULFATE 325MG TAB PO ×3 (09:10→21:07)
[2018-05-21] MEDS: lamoTRIgine 100MG TAB PO ×3 (09:10→21:06)
[2018-05-21] MEDS: ACETAMINOPHEN TAB 650MG DOSE (2X325MG) PO ×3 (09:11→21:08)
[2018-05-21] MEDS: ASCORBIC ACID 250 MG TAB PO ×3 (09:11→21:07)
[2018-05-21] MEDS: MAGNESIUM OXIDE 400 MG TAB (MAG-OX) PO ×3 (09:11→21:07)
[2018-05-21] MEDS: CLORAZEPATE 3.75 MG TAB PO ×3 (09:12→21:07)
[2018-05-21] MEDS: PANTOPRAZOLE 40MG TAB (PROTONIX) PO (09:12)
[2018-05-21] MEDS: LACTOBACILLUS ACIDOPHILUS CAP (BACID) PO ×3 (09:12→17:50)
[2018-05-21] MEDS: DIGOXIN 0.0625MG PER 1/2TABLET PO (09:13)
[2018-05-21] MEDS: carBAMazepine XR 200 MG TAB PO ×3 (09:13→21:07)
[2018-05-21] MEDS: PENTOSAN POLYSULFATE SODIUM 100 MG CAP (ELMIRON) PO ×5 (09:13→21:07)
[2018-05-21] MEDS: CLOPIDOGREL 75 MG TAB PO (09:13)
[2018-05-21] MEDS: CARVedilol 6.25 MG TAB PO ×3 (09:14→21:07)
[2018-05-21] MEDS: NYSTATIN 100,000 UNITS/GM TOPICAL PWD 15 GM TOP ×2 (09:15→21:08)
[2018-05-21] MEDS: SENOKOT S TAB PO ×2 (09:15→21:00)
[2018-05-21] MEDS: FUROSEMIDE 100 MG/10 ML VIAL (J1940) IV ×3 (09:16→21:06)
[2018-05-21 11:39] LABS: BEDSIDE GLUCOSE 174 MG/DL (83-110)
[2018-05-21 17:09] LABS: BEDSIDE GLUCOSE 182 MG/DL (83-110)
[2018-05-21 19:59] LABS: BEDSIDE GLUCOSE 151 MG/DL (83-110)
[2018-05-21] MEDS: ATORVASTATIN 20 MG TAB PO ×2 (21:00→21:06)
[2018-05-21] MEDS: TAMSULOSIN 0.4 MG CAP PO ×2 (21:00→21:07)
[2018-05-21] MEDS: guaiFENesin ER 600 MG TAB PO ×2 (21:00→21:07)
[2018-05-21] MEDS: SERTRALINE HCL 50 MG TAB PO ×2 (21:00→21:07)
[2018-05-22] MEDS: SLF 3 ML SYR IV ×3 (05:06→20:17)
[2018-05-22 06:43] LABS: ALBUMIN 3.1 GM/DL (3.2-5.2); ALBUMIN/GLOBULIN RATIO 0.91 (1.00-1.93); ALKALINE PHOSPHATASE 135 U/L (45-117); ALT/SGPT 91 U/L (12-78); ANION GAP 10 MEQ/L (8-16); AST/SGOT 109 U/L (7-37); BILIRUBIN,TOTAL 0.5 MG/DL (0.2-1.0); BLOOD UREA NITROGEN 47 MG/DL (7-18); CALCIUM LEVEL 8.3 MG/DL (8.8-10.2); CARBON DIOXIDE LEVEL 30 MEQ/L (21-32); CHLORIDE LEVEL 103 MEQ/L (98-107); CREATININE FOR GFR 1.57 MG/DL (0.70-1.30); GLUCOSE, FASTING 133 MG/DL (70-100); MAGNESIUM LEVEL 2.6 MG/DL (1.8-2.4); POTASSIUM SERUM 3.8 MEQ/L (3.5-5.1); SODIUM LEVEL 143 MEQ/L (136-145); TOTAL PROTEIN 6.5 GM/DL (6.4-8.2)
[2018-05-22 07:03] LABS: BASO # 0.1 10^3/uL (0.0-0.2); BASO % 0.4 % (0.0-1.0); EOS # 0.3 10^3/uL (0.0-0.50); EOS % 1.8 % (0.0-3.0); HEMATOCRIT 30.1 % (42.0-52.0); HEMOGLOBIN 9.8 g/dl (13.5-17.5); IMMATURE GRANULOCYTE % 0.5 % (0-3.0); LYMPH # 0.7 10^3/uL (1.5-4.5); LYMPH % 4.3 % (24.0-44.0); MEAN CORPUSCULAR HEMOGLOBIN 30.3 pg (27.0-33.0); MEAN CORPUSCULAR HGB CONC 32.6 g/dl (32.0-36.5); MEAN CORPUSCULAR VOLUME 93.2 fl (80.0-96.0); MONO # 1.4 10^3/uL (0.0-0.8); MONO % 8.7 % (0.0-5.0); NEUTROPHILS # 13.7 10^3/uL (1.8-7.7); NEUTROPHILS % 84.3 % (36.0-66.0); PLATELET COUNT, AUTOMATED 589 10^3/uL (150-450); RED BLOOD COUNT 3.23 10^6/uL (4.30-6.10); RED CELL DISTRIBUTION WIDTH 14.4 % (11.5-14.5); WHITE BLOOD COUNT 16.2 10^3/uL (4.0-10.0)
[2018-05-22] MEDS: HumaLOG INSULIN (NovoLOG) PER UNIT SC ×4 (07:30→21:00)
[2018-05-22] MEDS: LACTOBACILLUS ACIDOPHILUS CAP (BACID) PO ×2 (08:40→16:41)
[2018-05-22] MEDS: FUROSEMIDE 100 MG/10 ML VIAL (J1940) IV ×3 (08:40→20:14)
[2018-05-22] MEDS: NYSTATIN 100,000 UNITS/GM TOPICAL PWD 15 GM TOP ×2 (08:40→20:16)
[2018-05-22] MEDS: guaiFENesin ER 600 MG TAB PO ×2 (08:41→20:16)
[2018-05-22] MEDS: CARVedilol 6.25 MG TAB PO ×2 (08:41→20:15)
[2018-05-22] MEDS: lamoTRIgine 100MG TAB PO ×2 (08:41→20:15)
[2018-05-22] MEDS: PANTOPRAZOLE 40MG TAB (PROTONIX) PO (08:41)
[2018-05-22] MEDS: SENOKOT S TAB PO ×2 (08:41→20:15)
[2018-05-22] MEDS: PENTOSAN POLYSULFATE SODIUM 100 MG CAP (ELMIRON) PO ×3 (08:41→20:16)
[2018-05-22] MEDS: CLORAZEPATE 3.75 MG TAB PO ×2 (08:41→20:14)
[2018-05-22] MEDS: carBAMazepine XR 200 MG TAB PO ×2 (08:41→20:16)
[2018-05-22] MEDS: FERROUS SULFATE 325MG TAB PO ×2 (08:42→20:15)
[2018-05-22] MEDS: CLOPIDOGREL 75 MG TAB PO (08:42)
[2018-05-22] MEDS: ASCORBIC ACID 250 MG TAB PO ×2 (08:42→20:14)
[2018-05-22] MEDS: DIGOXIN 0.0625MG PER 1/2TABLET PO (08:42)
[2018-05-22] MEDS: MAGNESIUM OXIDE 400 MG TAB (MAG-OX) PO ×2 (08:42→20:15)
[2018-05-22] MEDS: IPRATROPIUM 0.5MG/ALBUTEROL 2.5MG INH SOL UD 3ML (DUONEB)(J7620) NEB (11:18)
[2018-05-22 11:32] LABS: BEDSIDE GLUCOSE 146 MG/DL (83-110)
[2018-05-22 16:35] LABS: BEDSIDE GLUCOSE 133 MG/DL (83-110)
[2018-05-22] MEDS: ATORVASTATIN 20 MG TAB PO (20:15)
[2018-05-22] MEDS: TAMSULOSIN 0.4 MG CAP PO (20:16)
[2018-05-22] MEDS: SERTRALINE HCL 50 MG TAB PO (20:16)
[2018-05-22] MEDS: ACETAMINOPHEN TAB 650MG DOSE (2X325MG) PO (20:16)
[2018-05-23] MEDS: SLF 3 ML SYR IV ×2 (05:25→13:12)
[2018-05-23 07:12] LABS: BEDSIDE GLUCOSE 129 MG/DL (83-110)
[2018-05-23] MEDS: LACTOBACILLUS ACIDOPHILUS CAP (BACID) PO (08:37)
[2018-05-23] MEDS: HumaLOG INSULIN (NovoLOG) PER UNIT SC ×2 (08:38→11:52)
[2018-05-23] MEDS: guaiFENesin ER 600 MG TAB PO ×2 (09:27→21:00)
[2018-05-23] MEDS: PENTOSAN POLYSULFATE SODIUM 100 MG CAP (ELMIRON) PO (09:27)
[2018-05-23] MEDS: ASCORBIC ACID 250 MG TAB PO (09:27)
[2018-05-23 09:28] LABS: HEMATOCRIT 32.2 % (42.0-52.0); HEMOGLOBIN 10.3 g/dl (13.5-17.5); MEAN CORPUSCULAR HEMOGLOBIN 30.6 pg (27.0-33.0); MEAN CORPUSCULAR VOLUME 95.5 fl (80.0-96.0); PLATELET COUNT, AUTOMATED 473 10^3/uL (150-450); RED BLOOD COUNT 3.37 10^6/uL (4.30-6.10); RED CELL DISTRIBUTION WIDTH 14.2 % (11.5-14.5); WHITE BLOOD COUNT 17.2 10^3/uL (4.0-10.0)
[2018-05-23] MEDS: PANTOPRAZOLE 40MG TAB (PROTONIX) PO (09:28)
[2018-05-23] MEDS: lamoTRIgine 100MG TAB PO ×2 (09:28→21:00)
[2018-05-23] MEDS: MAGNESIUM OXIDE 400 MG TAB (MAG-OX) PO (09:28)
[2018-05-23] MEDS: CLORAZEPATE 3.75 MG TAB PO ×2 (09:30→21:00)
[2018-05-23] MEDS: FUROSEMIDE 100 MG/10 ML VIAL (J1940) IV (09:30)
[2018-05-23] MEDS: carBAMazepine XR 200 MG TAB PO ×2 (09:30→21:00)
[2018-05-23] MEDS: DIGOXIN 0.0625MG PER 1/2TABLET PO (09:30)
[2018-05-23] MEDS: CARVedilol 6.25 MG TAB PO (09:31)
[2018-05-23] MEDS: CLOPIDOGREL 75 MG TAB PO (09:32)
[2018-05-23] MEDS: FERROUS SULFATE 325MG TAB PO (09:32)
[2018-05-23] MEDS: SENOKOT S TAB PO (09:32)
[2018-05-23] MEDS: NYSTATIN 100,000 UNITS/GM TOPICAL PWD 15 GM TOP (09:33)
[2018-05-23 09:48] LABS: ANION GAP 10 MEQ/L (8-16); BLOOD UREA NITROGEN 48 MG/DL (7-18); CALCIUM LEVEL 7.8 MG/DL (8.8-10.2); CARBON DIOXIDE LEVEL 29 MEQ/L (21-32); CHLORIDE LEVEL 102 MEQ/L (98-107); CREATININE FOR GFR 1.52 MG/DL (0.70-1.30); GLOMERULAR FILTRATION RATE 47.7 (>42); GLUCOSE, FASTING 202 MG/DL (70-100); POTASSIUM SERUM 3.9 MEQ/L (3.5-5.1); SODIUM LEVEL 141 MEQ/L (136-145)
[2018-05-23] MEDS: IPRATROPIUM 0.5MG/ALBUTEROL 2.5MG INH SOL UD 3ML (DUONEB)(J7620) NEB (10:06)
[2018-05-23 11:17] LABS: BEDSIDE GLUCOSE 132 MG/DL (83-110)
[2018-05-23 11:39] LABS: BEDSIDE GLUCOSE 150 MG/DL (83-110)
[2018-05-23] MEDS: FUROSEMIDE 40 MG/4 ML VIAL (J1940) IV ×3 (13:11→23:12)
[2018-05-23 13:40] LABS: TROPONIN I 0.02 NG/ML (< 0.10)
[2018-05-23] MEDS ORDERED: ATROPINE SULFATE 1% OP SOLN 2 ML BTL SL (14:00)
[2018-05-23] MEDS ORDERED: ONDANSETRON 4MG/2ML VIAL (J2405) IV (14:00)
[2018-05-23] MEDS ORDERED: HALOPERIDOL 5 MG/ML VIAL (J1630) IM (14:00)
[2018-05-23] MEDS: MORPHINE 4 MG/ML 1ML VIAL/SYRINGE (J2270) IV ×4 (14:05→22:59)
[2018-05-23] MEDS: SCOPOLAMINE 1MG TRANSDERMAL PATCH TOP (14:44)
[2018-05-23] MEDS: MORPHINE 10MG/0.5ML ORAL CONCENTRATE SOLUTION U/D SL ×4 (15:19→21:07)
[2018-05-23] MEDS ORDERED: MORPHINE 10MG/0.5ML ORAL CONCENTRATE SOLUTION U/D SL (18:15)
[2018-05-23] MEDS: HALOPERIDOL 5 MG/ML VIAL (J1630) IV ×2 (18:18→23:34)
[2018-05-23] MEDS: SERTRALINE HCL 50 MG TAB PO (21:00)
[2018-05-24] MEDS: MORPHINE 10MG/0.5ML ORAL CONCENTRATE SOLUTION U/D SL ×6 (00:23→20:27)
[2018-05-24] MEDS: MORPHINE 4 MG/ML 1ML VIAL/SYRINGE (J2270) IV ×7 (02:41→22:58)
[2018-05-24] MEDS: CLORAZEPATE 3.75 MG TAB PO (09:00)
[2018-05-24] MEDS: carBAMazepine XR 200 MG TAB PO ×2 (09:00→21:00)
[2018-05-24] MEDS: FUROSEMIDE 40 MG/4 ML VIAL (J1940) IV (09:00)
[2018-05-24] MEDS: guaiFENesin ER 600 MG TAB PO (09:00)
[2018-05-24] MEDS: lamoTRIgine 100MG TAB PO ×2 (09:00→21:00)
[2018-05-24] MEDS: HALOPERIDOL 5 MG/ML VIAL (J1630) IV (11:26)
[2018-05-24] MEDS: MORPHINE SULF IN 0.9% NACL 100 MG in APPROPRIATE DILUENT 1 EA IV (14:18)
[2018-05-24] MEDS: diphenhydrAMINE INJ 50MG/ML VIAL (J1200) IV ×2 (15:15→17:57)
[2018-05-26] MEDS ORDERED: UNRESOLVED CLARIFICATION ENTRY XX (00:01)
== END 2018-05-25 03:45 | disposition expired | DRG 70 ==
LOC: M ICU 04-26 06:34 → M MSPAV 05-05 00:57 → M MS5PR 05-19 16:22 → M ED 15:20 → M PCU 04-26 10:47 → M ED INP 18:09 → M MSPAV 20:07
DX: G93.40 Encephalopathy, unspecified (principal); I50.43 Acute on chronic combined systolic (congestive) and diastolic (congestive) heart failure; I13.0 Hypertensive heart and chronic kidney disease with heart failure and stage 1 through stage 4 chronic kidney disease, or unspecified chronic kidney disease; N30.40 Irradiation cystitis without hematuria; E87.2 Acidosis; N39.0 Urinary tract infection, site not specified; I42.9 Cardiomyopathy, unspecified; Z91.018 Allergy to other foods; Z66 Do not resuscitate; Z85.46 Personal history of malignant neoplasm of prostate; I25.10 Atherosclerotic heart disease of native coronary artery without angina pectoris; G40.909 Epilepsy, unspecified, not intractable, without status epilepticus; F32.9 Major depressive disorder, single episode, unspecified; N40.0 Benign prostatic hyperplasia without lower urinary tract symptoms; E11.9 Type 2 diabetes mellitus without complications; E78.5 Hyperlipidemia, unspecified; R33.9 Retention of urine, unspecified; M19.90 Unspecified osteoarthritis, unspecified site; Z86.73 Personal history of transient ischemic attack (TIA), and cerebral infarction without residual deficits; Z51.5 Encounter for palliative care; N18.3 Chronic kidney disease, stage 3 (moderate); Z79.899 Other long term (current) drug therapy; Z87.891 Personal history of nicotine dependence; J45.909 Unspecified asthma, uncomplicated; Z91.013 Allergy to seafood; Z95.810 Presence of automatic (implantable) cardiac defibrillator